=== PATIENT | male | born 1945 | race African-American/Black ===

== ENCOUNTER 2017-12-19 13:03 | Inpatient (IN) | payer MEDICARE, OTHER ==
[~2017-12-19] VITALS: Ht 180.3 cm; Wt 87.5 kg
[~2017-12-19 13:03] MED LIST: ASPI325T PO; CLON-352 PO; HYDR-2768 PO; LISI-363 PO; LOSA50TA PO; METO50TA PO; NITR.4 SL; OMEP20TA PO; SPIR25 PO
[2017-12-19] MEDS ORDERED: ACETAMINOPHEN 325 MG TAB PO ONE (13:15)
[2017-12-19] MEDS ORDERED: VANCOMYCIN INJ 1,000 MG in SODIUM CHLOR 0.9% 250 ML INJ 250 ML IV STA (13:15)
[2017-12-19] MEDS ORDERED: SODIUM CHLOR 0.9% 1000 ML INJ 1,000 ML IV ONE ×2 (13:15)
[2017-12-19] MEDS ORDERED: PIPERACIL-TAZO 4.5 GM PREMIX 100 ML IV STA (13:15)
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
[2017-12-19 13:32] VITALS: BP 188/100; PULSE 121; RESP 20; TEMP 98.7
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
[2017-12-19 14:02] VITALS: PULSE 113; RESP 20; TEMP 98.7; O2SAT 100
[2017-12-19 14:06] VITALS: BP 134/71; PULSE 127; RESP 20; O2SAT 100
[2017-12-19 14:54] LABS: AUTOMATED NEUTROPHIL # 22.9 TH/MM3 (1.8-7.7); BASOPHIL % 0.1 % (0.0-2.0); HEMATOCRIT 32.2 % (39.0-51.0); HEMOGLOBIN 10.4 GM/DL (13.0-17.0); LYMPH % 3.6 % (9.0-44.0); LYMPHOCYTE # 0.9 TH/MM3 (1.0-4.8); MEAN CELL VOLUME 93.7 FL (80.0-100.0); MEAN CORPUSCULAR HEMOGLOBIN 30.3 PG (27.0-34.0); MEAN CORPUSCULAR HGB CONC 32.4 % (32.0-36.0); MEAN PLATELET VOLUME 10.5 FL (7.0-11.0); MONO % 3.3 % (0.0-8.0); MONOCYTE # 0.8 TH/MM3 (0-0.9); PLATELET COUNT 279 TH/MM3 (150-450); RED BLOOD COUNT 3.43 MIL/MM3 (4.50-5.90); RED CELL DISTRIBUTION WIDTH 13.4 % (11.6-17.2); WHITE BLOOD COUNT 24.6 TH/MM3 (4.0-11.0)
[2017-12-19 15:15] LABS: INTERNATIONAL NORMALIZED RATIO 1.2 RATIO
[2017-12-19 15:20] LABS: AMORPHOUS SEDIMENT, URINE MANY; BACTERIA, URINE OCC /hpf; BILIRUBIN, URINE NEG (NEG); BLOOD, URINE SMALL (NEG); GLUCOSE,URINE NEG (NEG); KETONE, URINE NEG (NEG); MUCUS URINE FEW /lpf (OCC); NITRITE,URINE NEG (NEG); SQUAMOUS EPITHELIAL CELL URINE 35 /hpf (0-5); URINE COLOR YELLOW (YELLW/STRAW); URINE LEUKOCYTE ESTERASE TRACE (NEG)
[2017-12-19 15:26] LABS: ALKALINE PHOSPHATASE 117 U/L (45-117); ALT (GPT) 62 U/L (12-78); TOTAL BILIRUBIN ADULT 0.9 MG/DL (0.2-1.0); TOTAL PROTEIN 6.3 GM/DL (6.4-8.2)
[2017-12-19 15:28] LABS: ALBUMIN 1.8 GM/DL (3.4-5.0); AST (GOT) 72 U/L (15-37); BICARBONATE 19.5 MEQ/L (21.0-32.0); BLOOD UREA NITROGEN 81 MG/DL (7-18); CALCIUM 8.5 MG/DL (8.5-10.1); CHLORIDE 106 MEQ/L (98-107); CREATININE 2.08 MG/DL (0.60-1.30); GLOMERULAR FILTRATION RATE 38 ML/MIN (>89); GLUCOSE,RANDOM 130 MG/DL (74-106); SODIUM (NA) 141 MEQ/L (136-145)
[2017-12-19] MEDS ORDERED: LISI-515 PO (16:52)
[2017-12-19] MEDS ORDERED: METO25TA3 PO (16:52)
[2017-12-19] MEDS ORDERED: LOSA50TA PO (16:52)
[2017-12-19] MEDS ORDERED: HYDR25TA5 PO (16:52)
[2017-12-19] MEDS ORDERED: CLON0.1T PO (16:52)
[2017-12-19] MEDS ORDERED: ASPI-183 PO (16:52)
[2017-12-19 17:45] VITALS: BP 117/56; PULSE 86; RESP 16; TEMP 98.1; O2SAT 98
[2017-12-19] MEDS: SODIUM CHLOR 0.45% 1000 ML INJ 1,000 ML IV SCH (18:06)
[2017-12-19] MEDS ORDERED: ACETAMINOPHEN 325 MG TAB PO PRN ×2 (18:15)
[2017-12-19] MEDS ORDERED: Vancomycin Consult Pharmacy 1 EA OTHER SCH (18:15)
[2017-12-19] MEDS ORDERED: NALOXONE HCL 0.4 MG/ML AMP IV PUSH PRN (18:15)
[2017-12-19] MEDS ORDERED: SODIUM CHLORIDE 0.9% FLUSH 10 ML FLUSH IV FLUSH PRN (18:15)
[2017-12-19] MEDS ORDERED: VANCOMYCIN 1,000 MG/NS 250 ML IV ONE ×2 (19:15)
--- NOTE | 2017-12-19 19:58 | HHI.HP ---
[facility] Service [facility] Primary Care Physician Luis Armando Goldman MD Admission Diagnosis Sepsis/Decubitus Ulcer in Paraplegic Diagnoses: Travel History International Travel<30 Days: No Contact w/Intl Traveler <30 Da: No Traveled to Known Affected Are: No History of Present Illness 72-year-old paraplegic with a past medical history significant for hypertension and hyperlipidemia presents to the emergency department for the evaluation of a wound on his buttock. The patient reports that when he transfers from the bed to his chair he will occasionally fall on the floor and have to scoot across the floor on his buttock. He reports that he initially had a small wound in January 2017 that by July 2017 had progressed to a stage III decubitus ulcer. In October 2017 the patient was evaluated at the [facility] in [place] where he was told that his ulcer was healing and that it was now a stage II. The patient reports that he fell out of bed 2 times in the last week and has irritated the wound. He states there is foul-smelling drainage coming from the area. He denies any fevers/chills. No chest pain or shortness of breath. No abdominal pain. No nausea/vomiting/diarrhea. No lateralizing signs/symptoms. Review of Systems Except as stated in HPI: all other systems reviewed are Neg Past Family Social History Past Medical History Paraplegia Hypertension Hyperlipidemia Past Surgical History Left hip surgery Reported Medications Reported Meds & Active Scripts Active Reported Metoprolol Tartrate 25 Mg Tab 25 Mg PO BID Losartan (Losartan Potassium) 50 Mg Tab 50 Mg PO DAILY Lisinopril 20 Mg Tab 20 Mg PO DAILY Hydrochlorothiazide 25 Mg Tab 25 Mg PO DAILY Clonidine (Clonidine HCl) 0.1 Mg Tab 0.1 Mg PO BID Aspirin 325 Mg Tab 325 Mg PO DAILY Allergies: Coded Allergies: No Known Allergies (Unverified Allergy, Unknown, 12/19/17) Family History Father with CAD Social History Negative for alcohol, tobacco and illicit drugs Physical Exam Vital Signs Vital Signs Date Time Temp Pulse Resp B/P (MAP) Pulse Ox O2 Delivery O2 Flow Rate FiO2 12/19/17 19:20 12/19/17 17:45 98.1 86 16 117/56 (76) 98 Nasal Cannula 2.00 12/19/17 14:37 120 12/19/17 14:06 127 20 134/71 (92) 100 Nasal Cannula 2.00 12/19/17 14:02 98.7 113 20 100 Nasal Cannula 2.00 12/19/17 13:53 100 Nasal Cannula 2.00 12/19/17 13:32 98.7 121 20 188/100 (129) Physical Exam GENERAL: -[place] male sitting up in bed SKIN: 6 cm stage III decubitus ulcer on the right buttock and stage IV 5 x 9 centimeter decubitus ulcer to the left buttock with foul-smelling purulent drainage. HEAD: Atraumatic. Normocephalic. No temporal or scalp tenderness. EYES: Pupils equal round and reactive. Extraocular motions intact. No scleral icterus. No injection or drainage. ENT: Nose without bleeding, purulent drainage or septal hematoma. Throat without erythema, tonsillar hypertrophy or exudate. Uvula midline. Airway patent. NECK: Trachea midline. No JVD or lymphadenopathy. Supple, nontender, no meningeal signs. CARDIOVASCULAR: Regular rate and rhythm without murmurs, gallops, or rubs. RESPIRATORY: Clear to auscultation. Breath sounds equal bilaterally. No wheezes , rales, or rhonchi. GASTROINTESTINAL: Abdomen soft, non-tender, nondistended. No hepato-splenomegaly , or palpable masses. No guarding. MUSCULOSKELETAL: Extremities without clubbing, cyanosis, or edema. No joint tenderness, effusion, or edema noted. NEUROLOGICAL: Awake and alert. Cranial nerves II through XII intact. Normal speech. Paraplegia. Laboratory Laboratory Tests Test 12/19/17 14:15 12/19/17 14:25 Urine Color YELLOW Urine Turbidity CLOUDY Urine pH 5.0 Urine Specific [place] 1.015 Urine Protein 30 Urine Glucose (UA) NEG Urine Ketones NEG Urine Occult Blood SMALL Urine Nitrite NEG Urine Bilirubin NEG Urine Urobilinogen 2.0 Urine Leukocyte Esterase TRACE Urine RBC 4 Urine WBC 6 Urine Squamous Epithelial Cells 35 Urine Amorphous Sediment MANY Urine Bacteria OCC Urine Mucus FEW Microscopic Urinalysis Comment CATH-CULTURE IND White Blood Count 24.6 Red Blood Count 3.43 Hemoglobin 10.4 Hematocrit 32.2 Mean Corpuscular Volume 93.7 Mean Corpuscular Hemoglobin 30.3 Mean Corpuscular Hemoglobin Concent 32.4 Red Cell Distribution Width 13.4 Platelet Count 279 Mean Platelet Volume 10.5 Neutrophils (%) (Auto) 93.0 Lymphocytes (%) (Auto) 3.6 Monocytes (%) (Auto) 3.3 Eosinophils (%) (Auto) 0.0 Basophils (%) (Auto) 0.1 Neutrophils # (Auto) 22.9 Lymphocytes # (Auto) 0.9 Monocytes # (Auto) 0.8 Eosinophils # (Auto) 0.0 Basophils # (Auto) 0.0 CBC Comment DIFF FINAL Differential Comment Prothrombin Time 12.0 Prothromb Time International Ratio 1.2 Activated Partial Thromboplast Time 21.5 Blood Urea Nitrogen 81 Creatinine 2.08 Random Glucose 130 Total Protein 6.3 Albumin 1.8 Calcium Level 8.5 Alkaline Phosphatase 117 Aspartate Amino Transf (AST/SGOT) 72 Alanine Aminotransferase (ALT/SGPT) 62 Total Bilirubin 0.9 Sodium Level 141 Potassium Level 4.1 Chloride Level 106 Carbon Dioxide Level 19.5 Anion Gap 16 Estimat Glomerular Filtration Rate 38 Lactic Acid Level 1.4 Date/Time Source Procedure Growth Status 12/19/17 14:23 Blood Peripheral Aerobic Blood Culture Pending Received 12/19/17 14:23 Blood Peripheral Anaerobic Blood Culture Pending Received 12/19/17 14:15 Urine Catheterized Urine Urine Culture Pending Received 12/19/17 14:15 Wound Buttock Gram Stain Pending Received 12/19/17 14:15 Wound Buttock Wound Culture Pending Received Result Diagram: 12/19/17 1425 12/19/17 142 Caprini VTE Risk Assessment Caprini VTE Risk Assessment: Mod/High Risk (score >= 2) Caprini Risk Assessment Model Point Value = 1 Point Value = 2 Point Value = 3 Point Value = 5 Age 41-60 Minor surgery BMI > 25 kg/m2 Swollen legs Varicose veins or History of unexplained or recurrent spontaneous Oral contraceptives or hormone replacement Sepsis (< 1 month) Serious lung disease, including pneumonia (< 1 month) Abnormal pulmonary function Acute myocardial infarction Congestive heart failure (< 1 month) History of inflammatory bowel disease Medical patient at bed rest Age 61-74 Arthroscopic surgery Major open surgery (> 45 min) Laparoscopic surgery (> 45 min) Malignancy Confined to bed (> 72 hours) Immobilizing plaster cast Central venous access Age >= 75 History of VTE Family history of VTE Factor V Leiden Prothrombin [id number] Lupus anticoagulant Anticardiolipin antibodies Elevated serum homocysteine Heparin-induced thrombocytopenia Other congenital or acquired thrombophilia Stroke (< 1 month) Elective arthroplasty Hip, pelvis, or leg fracture Acute spinal cord injury (< 1 month) Prophylaxis Regimen Total Risk Factor Score Risk Level Prophylaxis Regimen 0-1 Low Early ambulation 2 Moderate Order ONE of the following: *Sequential Compression Device (SCD) *Heparin 5000 units SQ BID 3-4 Higher Order ONE of the following medications: *Heparin 5000 units SQ TID *Enoxaparin/Lovenox 40 mg SQ daily (WT < 150 kg, CrCl > 30 mL/min) *Enoxaparin/Lovenox 30 mg SQ daily (WT < 150 kg, CrCl > 10-29 mL/min) *Enoxaparin/Lovenox 30 mg SQ BID (WT < 150 kg, CrCl > 30 mL/min) AND/OR *Sequential Compression Device (SCD) 5 or more Highest Order ONE of the following medications: *Heparin 5000 units SQ TID (Preferred with Epidurals) *Enoxaparin/Lovenox 40 mg SQ daily (WT < 150 kg, CrCl > 30 mL/min) *Enoxaparin/Lovenox 30 mg SQ daily (WT < 150 kg, CrCl > 10-29 mL/min) *Enoxaparin/Lovenox 30 mg SQ BID (WT < 150 kg, CrCl > 30 mL/min) AND *Sequential Compression Device (SCD) Assessment and Plan Assessment and Plan Assessment/plan: 1. Infected decubitus ulcer/sepsis Patient with leukocytosis, tachycardia Wound, blood cultures pending Vancomycin/Zosyn Wound care consulted, appreciate assistance Infectious disease consulted, appreciate assistance Plastic surgery consulted, appreciate assistance 2. Urinary tract infection Urine culture pending Antibiotics as above 3. Acute kidney injury BUN/81 creatinine 2.08 May be chronic component, no recent values for comparison IV fluid hydration Monitor renal function 4. Hypertension/hyperlipidemia Continue home medications FEN Heart healthy diet Electrolytes: Monitor and replete as needed NS at 100 cc/hour Heparin Physician Certification 2 Midnight Certification Type: Admission for Inpatient Services Order for Inpatient Services The services are ordered in accordance with Medicare regulations or non- Medicare payer requirements, as applicable. In the case of services not specified as inpatient-only, they are appropriately provided as inpatient services in accordance with the 2-midnight benchmark. Estimated LOS (days): 2 2 days is the estimated time the patient will need to remain in the hospital, assuming treatment plan goals are met and no additional complications. Post-Hospital Plan: Not yet determined Bella Edmonds MD Dec 19, 2017 19:58
[2017-12-19 20:00] VITALS: BP 128/62; PULSE 99; RESP 18; TEMP 98.5; O2SAT 97
[2017-12-19] MEDS: DOCUSATE SODIUM 50 MG/SENNA 8.6 MG TAB PO SCH (21:00)
[2017-12-19] MEDS: SODIUM CHLOR 0.9% 1000 ML INJ 1,000 ML IV SCH (23:01)
[2017-12-19] MEDS: cloNIDine HCL 0.1 MG TAB PO SCH (23:02)
[2017-12-19] MEDS: METOPROLOL TARTRATE 25 MG TAB PO SCH (23:02)
[2017-12-19] MEDS: HEPARIN SODIUM - SQ 10,000 UNITS/ML VIAL SQ SCH (23:04)
[2017-12-19] MEDS: SODIUM CHLORIDE 0.9% FLUSH 10 ML FLUSH IV FLUSH SCH (23:13)
[2017-12-19] MEDS: PIPERACIL-TAZO 2.25 GM PREMIX 50 ML IV SCH (23:13)
[2017-12-19 23:33] VITALS: PULSE 109
[2017-12-20] VITALS (7 sets, daily range): BP systolic 119–162; BP diastolic 59–77; PULSE 16–101; RESP 10–18; TEMP 98.1–100.3; O2SAT 91–98
[2017-12-20] MEDS: SODIUM CHLOR 0.45% 1000 ML INJ 1,000 ML IV SCH ×2 (03:52→20:47)
[2017-12-20] MEDS: PIPERACIL-TAZO 2.25 GM PREMIX 50 ML IV SCH ×4 (04:46→22:05)
[2017-12-20] MEDS: HEPARIN SODIUM - SQ 10,000 UNITS/ML VIAL SQ SCH ×4 (04:47→22:05)
[2017-12-20] MEDS: SODIUM CHLOR 0.9% 1000 ML INJ 1,000 ML IV SCH ×3 (04:47→22:10)
[2017-12-20 08:02] LABS: AUTOMATED NEUTROPHIL # 21.8 TH/MM3 (1.8-7.7); BASOPHIL % 0.2 % (0.0-2.0); EOSINOPHIL % 0.1 % (0.0-4.0); HEMATOCRIT 28.1 % (39.0-51.0); HEMOGLOBIN 9.2 GM/DL (13.0-17.0); LYMPH % 2.8 % (9.0-44.0); LYMPHOCYTE # 0.6 TH/MM3 (1.0-4.8); MEAN CELL VOLUME 93.8 FL (80.0-100.0); MEAN CORPUSCULAR HEMOGLOBIN 30.7 PG (27.0-34.0); MEAN CORPUSCULAR HGB CONC 32.8 % (32.0-36.0); MEAN PLATELET VOLUME 10.6 FL (7.0-11.0); MONO % 3.2 % (0.0-8.0); MONOCYTE # 0.7 TH/MM3 (0-0.9); NEUT % 93.7 % (16.0-70.0); PLATELET COUNT 245 TH/MM3 (150-450); RED BLOOD COUNT 2.99 MIL/MM3 (4.50-5.90); RED CELL DISTRIBUTION WIDTH 13.5 % (11.6-17.2); WHITE BLOOD COUNT 23.2 TH/MM3 (4.0-11.0)
[2017-12-20 08:42] LABS: ALBUMIN 1.5 GM/DL (3.4-5.0); ALKALINE PHOSPHATASE 136 U/L (45-117); ALT (GPT) 72 U/L (12-78); AST (GOT) 87 U/L (15-37); BICARBONATE 22.6 MEQ/L (21.0-32.0); BLOOD UREA NITROGEN 70 MG/DL (7-18); CALCIUM 7.7 MG/DL (8.5-10.1); CHLORIDE 109 MEQ/L (98-107); CREATININE 1.91 MG/DL (0.60-1.30); GLOMERULAR FILTRATION RATE 42 ML/MIN (>89); GLUCOSE,RANDOM 143 MG/DL (74-106); SODIUM (NA) 143 MEQ/L (136-145); TOTAL BILIRUBIN ADULT 0.6 MG/DL (0.2-1.0); TOTAL PROTEIN 5.5 GM/DL (6.4-8.2)
[2017-12-20] MEDS: cloNIDine HCL 0.1 MG TAB PO SCH ×2 (08:49→22:06)
[2017-12-20] MEDS: METOPROLOL TARTRATE 25 MG TAB PO SCH ×2 (08:49→22:06)
[2017-12-20] MEDS: SODIUM CHLORIDE 0.9% FLUSH 10 ML FLUSH IV FLUSH SCH ×2 (08:50→21:00)
[2017-12-20] MEDS: DOCUSATE SODIUM 50 MG/SENNA 8.6 MG TAB PO SCH ×2 (08:52→21:00)
--- NOTE | 2017-12-20 09:15 | EKG ---
Date Performed: 12/19/2017 Time Performed: 15:31:50 PTAGE: 72 years EKG: SINUS TACHYCARDIA WITH OCCASIONAL VENTRICULAR PREMATURE COMPLEXES NONSPECIFIC T-WAVE ABNORM ALITY ABNORMAL RHYTHM ECG Since the PREVIOUS TRACING , no significant change noted PREVIOUS TRACING DOCTOR: Natanael Anglin Interpretating Date/Time 12/20/2017 09:13:24
[2017-12-20 10:07] LABS: BANDS 20 % (0-6); MONOCYTES 3 % (0-8); NEUTROPHIL # MANUAL DIFF 22.5 TH/MM3 (1.8-7.7); POLYS (SEG NEUTROPHILS) 77 % (16-70)
[2017-12-20 10:08] LABS: TOXIC GRANULATION 2+ (NORMAL)
--- NOTE | 2017-12-20 10:54 | HHI.PR ---
Subjective Remarks Patient says he is feeling all right. Denies any chest pain shortness of breath denies any nausea or vomiting. Objective Vital Signs Date Time Temp Pulse Resp B/P (MAP) Pulse Ox O2 Delivery O2 Flow Rate FiO2 12/20/17 08:00 98.9 81 18 127/61 (83) 98 12/20/17 04:00 100.3 90 18 119/60 (79) 98 12/20/17 00:00 99.3 94 18 123/65 (84) 97 12/19/17 23:33 109 12/19/17 20:00 98.5 99 18 128/62 (84) 97 12/19/17 19:20 12/19/17 17:45 98.1 86 16 117/56 (76) 98 Nasal Cannula 2.00 12/19/17 14:37 120 12/19/17 14:06 127 20 134/71 (92) 100 Nasal Cannula 2.00 12/19/17 14:02 98.7 113 20 100 Nasal Cannula 2.00 12/19/17 13:53 100 Nasal Cannula 2.00 12/19/17 13:32 98.7 121 20 188/100 (129) I/O 12/19/17 12/19/17 12/19/17 12/20/17 12/20/17 12/20/17 06:59 14:59 22:59 06:59 14:59 22:59 Intake Total 2350 ml 250 ml Output Total 200 ml Balance 2350 ml 50 ml Intake IV Total 2350 ml 250 ml Output Urine Total 200 ml # Voids 2 Result Diagram: 12/20/17 0704 12/20/17 0704 Objective Remarks GENERAL: Patient sitting up in bed. Appears comfortable. SKIN: Warm and dry. HEAD: Normocephalic. EYES: No scleral icterus. No injection or drainage. NECK: Supple, trachea midline. No JVD or lymphadenopathy. CARDIOVASCULAR: Regular rate and rhythm without murmurs, gallops, or rubs. RESPIRATORY: Breath sounds equal bilaterally. No accessory muscle use. GASTROINTESTINAL: Abdomen soft, non-tender, nondistended. MUSCULOSKELETAL: No cyanosis, or edema. BACK: Nontender without obvious deformity. No CVA tenderness. A/P Assessment and Plan // Infected decubitus ulcer/sepsis Patient with leukocytosis, tachycardia Wound, blood cultures pending Vancomycin/Zosyn Wound care consulted, appreciate assistance Infectious disease consulted, appreciate assistance Plastic surgery consulted, appreciate assistance = Antibiotics. Follow-up plastic surgery consultation. Appreciate assistance. //Urinary tract infection Urine culture pending Antibiotics as above = Continue antibiotics and follow cultures. //Acute kidney injury BUN/81 creatinine 2.08 May be chronic component, no recent values for comparison IV fluid hydration Monitor renal function = Continue IV fluids. BUN improving. //Hypertension/hyperlipidemia Continue home medications FEN Heart healthy diet Electrolytes: Monitor and replete as needed NS at 75 cc/hour Heparin Discharge Planning Patient is paraplegic. pending PT/OT Wayne Peoples MD Dec 20, 2017 10:53
--- NOTE | 2017-12-20 15:02 | MB ---
cc: Lalitha Lehman MD DATE: 12/20/2017 REQUESTING PHYSICIAN: Amari Harmon MD REASON FOR CONSULTATION: Infected decubitus ulcer. HISTORY OF PRESENT ILLNESS: The patient is a 72-year-old paraplegic male with a past medical history of hypertension and hyperlipidemia, who came into the emergency room on 12/19/2017 for a wound of his buttock. The patient apparently had been evaluated in [place] at the [facility], but now comes in with sepsis. Consultation is requested regarding evaluation and treatment of this wound. REVIEW OF SYSTEMS: Otherwise negative in detail. PAST MEDICAL HISTORY: Significant for paraplegia, hypertension, hyperlipidemia. PAST SURGICAL HISTORY: Includes left hip surgery. MEDICATIONS: Listed on the chart. ALLERGIES: HE HAS NO KNOWN FOOD OR DRUG ALLERGIES. FAMILY HISTORY: Significant for coronary artery disease. SOCIAL HISTORY: He denies use of alcohol, tobacco or illicit drugs. PHYSICAL EXAMINATION: GENERAL: The patient is lying comfortably in bed. VITAL SIGNS: His temperature is 98.9, blood pressure is 127/81, pulse is 80, respirations 18. His pulse oximetry is 90 on room air. HEENT: His extraocular muscles are intact. His pupils are equal, round and reactive to light. His mouth is clear. NECK: Supple without masses. LUNGS: Clear. HEART: Has a regular rate and rhythm. EXTREMITIES: Reveals a stage III decubitus ulcer over the right ischial tuberosity. There is no evidence of cellulitis. This area measures approximately 4 x 2 cm in greatest dimension. On the left side, the patient has a 5 x 9 cm decubitus ulcer over the ischial tuberosity. There is a significant amount of muscle. There was a foul odor. It is draining. There is no cellulitis surrounding the area. REVIEW OF LABORATORY DATA: On admission, the patient's H and H was 10.4 and 32.2 with a white count of 24.6, which is 23.2 today with a positive shift. His chemistries show BUN of 70, creatinine 1.91. The glomerular filtration rate of 42. His albumin is low at 1.5 with a total protein of 5.5. His urine shows that the culture is indicated as it is cloudy, high protein, small blood, trace urine leukocyte esterase. He has got white cells and red cells, occasional bacteria. IMPRESSION: The patient has a left ischial decubitus ulcer, which has a significant amount of necrotic material. PLAN: The patient will be taken to the operating room for debridement of the wound and application of a wound VAC. The patient understands and accepts the risks and complications of the surgery. MD ASIA Nunn/TEENA , 02:40 PM , 03:01 PM
--- NOTE | 2017-12-20 15:58 | PD.WCN.NOT ---
Wound Consult Description: Consult for WOUND MANAGEMENT of Sacral per Dr Harmon Communicated with: Dr Fallon Hernandez, RN Recommendation: Cleanse left lateral lower extremity with wound cleanser and gauze Q5D and PRN for saturation or dislodgement. Apply Maxorb II over wound beds and cover with gauze. Secure primary dressing with rolled gauze and ROSELYN wrap. Date dressing. Right ischial tuberosity DAILY: Cleanse wound with adherent necrotic tissue with NS and gauze. Apply nickel thick Santyl to NS moistened gauze and place in/on wound bed. Apply Cavilon skin barrier film to periwound and allow to dry. Secure with bordered gauze and date. Left ischial tuberosity BID and PRN for saturation or dislodgment until O.R. debridement 12/21/[address] Lehman: Betadine moistened rolled gauze placed into wound. Cover with dry cover and date/time. Additional Information: Patient seen with Dr Lehman today on for bilateral ischial wounds. Patient was able to reposition himself with minimal assistance to his stomach for assessment. During repositioning, let it be noted that patient has 2 left lower lateral leg wounds, the largest measuring 2.8cm x 0.9cm x 0.2cm of moist red non granulating tissue without odor and without drainage and periwound of hyperkeratotic tissue. The smaller wound is noted superiorly to previous wound measuring 2cm x 1cm x 0.2cm with moist red non granulating tissue without odor and without drainage and periwound of hyperkeratotic tissue. Wound was cleansed with wound cleanser and pat dry with gauze. Maxorb II was applied to open wounds and covered with gauze secured with ROSELYN wrap that may remain in place for 5 days. Right ischium dressing of bordered gauze was removed to reveal an unstageable pressure wound measuring 6.8cm x 6.5cm x ~70% adherent dry yellow slough and ~30% red and white tissue. There is no odor and drainage noted. Wound margins are jagged and irregular with unremarkable periwound. Wound was cleansed with wound cleanser. Dr Lehman entered room when field underwriter was applying a dry dressing over wound and asked to visualize before securing with bordered gauze. Left ischium dressing of bordered gauze and foul soiled gauze pads were removed to reveal a Stage IV pressure injury with visualized muscle and palpable bone measuring ~16cm x 8cm x 4cm with ~80% loosely adherent brown slough ~10% fascia and ~10% muscle tissue. Dark yellow hamilton thick exudate/active drainage was noted with repositioning for clear visualization of wound. Undermining was noted circumferentially with deepest being 7cm @9 o'clock and 5cm from 10-1 o'clock. Wound extends down into the left groin. Wound was cleansed with wound cleanser and packed with betadine moistened rolled gauze as verbally ordered by Dr Lehman. Patient spoke with DR regarding OR for debridement in the morning. Patient was cleansed, repositioned, and all bed linens changed by field underwriter prior to exiting patient room. RN was notified that patient was requesting a condom catheter to protect all his new clean sheets. Clarisse Villa [facility] Dec 20, 2017 15:58
--- NOTE | 2017-12-20 19:24 | PD.ID.CON ---
History of Present Illness Service ID Consult Requested By Reason for Consult Eval and Mment of INfected Stage III decub ulcer. Primary Care Physician Luis Armando Goldman MD Diagnoses: History of Present Illness 72-year-old paraplegic with a past medical history significant for hypertension and hyperlipidemia presents to the emergency department for the evaluation of a wound on his buttock. The patient reports that when he transfers from the bed to his chair he will occasionally fall on the floor and have to scoot across the floor on his buttock. He reports that he initially had a small wound in January 2017 that by July 2017 had progressed to a stage III decubitus ulcer. In October 2017 the patient was evaluated at the [facility] in [place] where he was told that his ulcer was healing and that it was now a stage II. The patient reports that he fell out of bed 2 times in the last week and has irritated the wound. He states there is foul-smelling drainage coming from the area. He denies any fevers/chills. No chest pain or shortness of breath. No abdominal pain. No nausea/vomiting/diarrhea. No lateralizing signs/symptoms. ID consulted for eval and Mment of Infected stage III decub ulcer possible underlying myositis with necrotic muscle. Review of Systems ROS Limitations: Poor Historian Past Family Social History Allergies: Coded Allergies: No Known Allergies (Unverified Allergy, Unknown, 12/19/17) Past Medical History Past Medical History Paraplegia Hypertension Hyperlipidemia Past Surgical History Past Surgical History Left hip surgery Reported Medications Reported Meds & Active Scripts Active Reported Metoprolol Tartrate 25 Mg Tab 25 Mg PO BID Losartan (Losartan Potassium) 50 Mg Tab 50 Mg PO DAILY Lisinopril 20 Mg Tab 20 Mg PO DAILY Hydrochlorothiazide 25 Mg Tab 25 Mg PO DAILY Clonidine (Clonidine HCl) 0.1 Mg Tab 0.1 Mg PO BID Aspirin 325 Mg Tab 325 Mg PO DAILY Active Ordered Medications Current Medications Medications (Trade) Dose Ordered Sig/Sharlene Route Start Time Stop Time Status Last Admin Piperacillin Sod/ Tazobactam Sod 50 ml @ 100 mls/hr Q6H IV 12/19/17 21:00 12/20/17 22:05 Pharmacy Profile Note 0 ml @ 0 mls/hr UNSCH OTHER 12/19/17 18:15 Sodium Chloride 1,000 ml @ 75 mls/hr [id number] IV 12/19/17 18:06 (NS Flush) 2 ml UNSCH PRN IV FLUSH 12/19/17 18:15 (NS Flush) 2 ml BID IV FLUSH 12/19/17 21:00 12/19/17 23:13 (Tylenol) 650 mg Q4H PRN PO 12/19/17 18:15 (Heparin Inj) 5,000 units Q8H SQ 12/19/17 21:00 12/20/17 11:54 (Tylenol) 650 mg Q6H PRN PO 12/19/17 18:15 (Roxicodone) 10 mg Q4H PRN PO 12/19/17 18:15 (Roxicodone) 5 mg Q4H PRN PO 12/19/17 18:15 (Narcan Inj) 0.4 mg UNSCH PRN IV PUSH 12/19/17 18:15 (Sheri-Colace) 1 tab BID PO 12/19/17 21:00 (Catapres) 0.1 mg BID PO 12/19/17 21:00 12/20/17 22:06 (Lopressor) 25 mg BID PO 12/19/17 21:00 12/20/17 22:06 Sodium Chloride 1,000 ml @ 100 mls/hr Q10H IV 12/19/17 20:00 12/20/17 22:10 Vancomycin HCl 1000 mg/Sodium Chloride 250 ml @ 250 mls/hr Q36H IV 12/21/17 11:00 ([facility] Ordered Lab Info) SPECIFIC LAB TO BE ... ONCE ONCE .XX 12/23/17 10:45 12/23/17 10:46 Family History reviewed and [place] Social History reviewed. Physical Exam Vital Signs Vital Signs Date Time Temp Pulse Resp B/P (MAP) Pulse Ox O2 Delivery O2 Flow Rate FiO2 12/20/17 16:00 98.1 85 18 153/65 (94) 91 12/20/17 12:00 98.3 84 18 121/59 (79) 96 12/20/17 08:00 98.9 81 18 127/61 (83) 98 12/20/17 08:00 78 12/20/17 04:00 100.3 90 18 119/60 (79) 98 12/20/17 00:00 99.3 94 18 123/65 (84) 97 12/19/17 23:33 109 12/19/17 20:00 98.5 99 18 128/62 (84) 97 Physical Exam GENERAL: This is a well-nourished, well-developed patient, in no apparent distress. SKIN: No rashes, ecchymoses or lesions. Cool and dry. HEAD: Atraumatic. Normocephalic. No temporal or scalp tenderness. EYES: Pupils equal round and reactive. Extraocular motions intact. No scleral icterus. No injection or drainage. ENT: Nose without bleeding, purulent drainage or septal hematoma. Throat without erythema, tonsillar hypertrophy or exudate. Uvula midline. Airway patent. NECK: Trachea midline. No JVD or lymphadenopathy. Supple, nontender, no meningeal signs. CARDIOVASCULAR: Regular rate and rhythm without murmurs, gallops, or rubs. RESPIRATORY: Clear to auscultation. Breath sounds equal bilaterally. No wheezes , rales, or rhonchi. GASTROINTESTINAL: Abdomen soft, non-tender, nondistended. No hepato-splenomegaly , or palpable masses. No guarding. MUSCULOSKELETAL: Extremities without clubbing, cyanosis, or edema. No joint tenderness, effusion, or edema noted. No calf tenderness. Negative Homans sign bilaterally. NEUROLOGICAL: Awake and alert. Right buttock area: decub ulcer noted. Warmth noted. Patient is dark skinned no erythema can be appreciated. IV line sites with no e.o infection. Laboratory Laboratory Tests Test 12/20/17 07:04 White Blood Count 23.2 Red Blood Count 2.99 Hemoglobin 9.2 Hematocrit 28.1 Mean Corpuscular Volume 93.8 Mean Corpuscular Hemoglobin 30.7 Mean Corpuscular Hemoglobin Concent 32.8 Red Cell Distribution Width 13.5 Platelet Count 245 Mean Platelet Volume 10.6 Neutrophils (%) (Auto) 93.7 Lymphocytes (%) (Auto) 2.8 Monocytes (%) (Auto) 3.2 Eosinophils (%) (Auto) 0.1 Basophils (%) (Auto) 0.2 Neutrophils # (Auto) 21.8 Lymphocytes # (Auto) 0.6 Monocytes # (Auto) 0.7 Eosinophils # (Auto) 0.0 Basophils # (Auto) 0.0 CBC Comment AUTO DIFF Differential Total Cells Counted 100 Neutrophils % (Manual) 77 Band Neutrophils % 20 Monocytes % 3 Neutrophils # (Manual) 22.5 Differential Comment FINAL DIFF MANUAL Toxic Granulation 2+ Platelet Estimate NORMAL Platelet Morphology Comment NORMAL Erythrocyte Sedimentation Rate 76 Blood Urea Nitrogen 70 Creatinine 1.91 Random Glucose 143 Total Protein 5.5 Albumin 1.5 Calcium Level 7.7 Alkaline Phosphatase 136 Aspartate Amino Transf (AST/SGOT) 87 Alanine Aminotransferase (ALT/SGPT) 72 Total Bilirubin 0.6 Sodium Level 143 Potassium Level 3.8 Chloride Level 109 Carbon Dioxide Level 22.6 Anion Gap 11 Estimat Glomerular Filtration Rate 42 B-Type Natriuretic Peptide 36 Date/Time Source Procedure Growth Status 12/19/17 14:23 Blood Peripheral Aerobic Blood Culture - Preliminary NO GROWTH IN 1 DAY Resulted 12/19/17 14:23 Blood Peripheral Anaerobic Blood Culture - Preliminary NO GROWTH IN 1 DAY Resulted 12/19/17 14:15 Urine Catheterized Urine Urine Culture - Final 50-100,000 CFU/ML MIXED ESTEFANÍA... Complete 12/19/17 14:15 Wound Buttock Gram Stain - Final Resulted 12/19/17 14:15 Wound Buttock Wound Culture - Preliminary Resulted Result Diagram: 12/20/17 0704 12/20/17 0704 Imaging Last Impressions Chest X-Ray 12/19/17 1315 Signed Impressions: CONCLUSION: No acute cardiopulmonary process. 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 Possible sepsis on admission Acute renal failure: prerenal, sepsis, ? baseline Recs Continue Zosyn IV Continue Vanco IV (target 10-15) Follow cultures Follow clinically. Please send cultures intraoperatively. Orders entered. Lisa Oliva MD Dec 20, 2017 19:24
[2017-12-21] VITALS (9 sets, daily range): BP systolic 121–139; BP diastolic 61–67; PULSE 69–94; RESP 16–18; TEMP 97.4–98.9; O2SAT 95–100
[2017-12-21] MEDS ORDERED: LACTATED RINGER'S 1000 ML IV PRN (04:15)
[2017-12-21] MEDS ORDERED: CHLORHEXIDINE GLUCONATE 2 % 1 PACK (2 CLOTHS) TOPICAL PRN (04:15)
[2017-12-21] MEDS ORDERED: POVIDONE IODINE 5% (ANTISEPSIS KIT) 4 APPLICATIONS EACH NARE PRN (04:15)
[2017-12-21] MEDS: HEPARIN SODIUM - SQ 10,000 UNITS/ML VIAL SQ SCH ×3 (04:16→21:03)
[2017-12-21] MEDS: PIPERACIL-TAZO 2.25 GM PREMIX 50 ML IV SCH ×4 (04:16→21:02)
[2017-12-21] MEDS: DOCUSATE SODIUM 50 MG/SENNA 8.6 MG TAB PO SCH ×2 (08:20→21:02)
[2017-12-21] MEDS: METOPROLOL TARTRATE 25 MG TAB PO SCH ×2 (08:22→21:02)
[2017-12-21] MEDS: cloNIDine HCL 0.1 MG TAB PO SCH ×2 (08:22→21:02)
[2017-12-21] MEDS: SODIUM CHLORIDE 0.9% FLUSH 10 ML FLUSH IV FLUSH SCH ×2 (09:00→21:02)
[2017-12-21] MEDS ORDERED: GENTAMICIN SULFATE 80 MG/2 ML VIAL ONE (09:28)
[2017-12-21] MEDS ORDERED: LIDOCAINE 1%/EPINEPHrine 1:100,000 SOLN 30 ML VIAL ONE (09:28)
[2017-12-21] MEDS ORDERED: VANCOMYCIN 1,000 MG/NS 250 ML IV SCH ×2 (11:00)
[2017-12-21] MEDS ORDERED: DO NOT ADM ANY ANTICOAGULANT DRUGS PRN (11:11)
[2017-12-21] MEDS ORDERED: MORPHINE SULFATE 4 MG/ML INJ ONE (11:15)
--- NOTE | 2017-12-21 11:16 | HHI.PR ---
Immediate Post Op Note Procedure Date: Dec 21, 2017 Pre Op Diagnosis: (1) Decubitus ulcer of buttock, stage 4 Post Op Diagnosis: (1) Decubitus ulcer of buttock, stage 4 Surgeon: Lalitha Lehman All Terrain Vehicle Racer(s): None Procedure: 1. Excisional debridement of the left ischial decubitus ulcer. 2. Placement of Wound VAC Estimated blood loss: 50 ml Anesthesia: General Drains: Other (wound vac) Patient to: PACU Patient Condition: Good Date/Time of Procedure: SEE SURGICAL CARE RECORD Lalitha Lehman MD Dec 21, 2017 11:16
[2017-12-21] MEDS: *MEPERIDINE 25 MG INJ VIAL PERIprocedural Use ONLY ONE (11:24)
--- NOTE | 2017-12-21 11:52 | MP ---
cc: Lalitha Lehman MD DATE OF OPERATION: PREOPERATIVE DIAGNOSIS: Decubitus ulcer of left ischial area, stage IV. POSTOPERATIVE DIAGNOSIS: Decubitus ulcer of left ischial area, stage IV. PROCEDURES PERFORMED: 1. Excisional debridement of left ischial decubitus ulcer, including muscle and bone. 2. Placement of wound vacuum-assisted closure. ANESTHESIA: General. SURGEON: Axel Lehman MD INDICATIONS: A 72-year-old male with history of paraplegia and severe decubitus ulcer on the left side. The ischial bone was exposed. There was significant necrotic material. It did track up toward his left testicle where there was a small pocket present. At the completion of the procedure, all the necrotic material had been debrided and the wound VAC placed. OPERATIVE TIME: Approximately 1 hour. ESTIMATED BLOOD LOSS: Approximately 50-100 mL PROCEDURE IN DETAIL: The patient was induced under general anesthesia, placed in a prone position. The buttock area was prepped with Betadine and draped in the usual sterile fashion. Attention was first turned to the left ischial area where the necrotic material was debrided. There was a significant amount of subcutaneous tissue and muscle. This was debrided. The Versajet was then used to debride some of the skin, which was also excised, as well as necrotic material. The ischium was debrided of sharp bony prominence, and the bone itself, though, appeared to be good, healthy with good perfusion. Once the bony prominences were removed, they were filed down to a nice smooth surface. The Versajet was used to completely remove the remaining necrotic material. The wound was then copiously irrigated with saline and Betadine solution, which was also poured into the pocket. A wound VAC was then placed into the defect and covered with the appropriate plastic. A bridge was created laterally in order to allow for better nursing care and less pressure. There was a little bit of a leak in the testicular area, so when the patient was placed back into a supine position, additional Mastisol and plastic was placed, and this gave an excellent seal with adequate suction. The patient was then taken from the operating room to the recovery room in satisfactory condition, having tolerated the procedure well. POSTOPERATIVE INSTRUCTIONS: Include keeping the wound VAC in place and giving him adequate nutrition. MD ASIA Nunn/ELIDA , 11:37 AM , 11:50 AM
[2017-12-21] MEDS ORDERED: PHENYLEPH/NS 1000 MCG/10 ML SYR IV ONE (12:00)
[2017-12-21] MEDS ORDERED: ROCURONIUM INJ 50 MG/5 ML SYRINGE IV PUSH ONE (12:00)
[2017-12-21] MEDS ORDERED: DEXAMETHASONE SOD PHOS 4 MG/ML VIAL IV ONE (12:00)
[2017-12-21] MEDS ORDERED: NEOSTIGMINE 5 MG/5 ML SYRINGE IV PUSH ONE (12:00)
[2017-12-21] MEDS ORDERED: GLYCOPYRROLATE 1 MG/5 ML SYRINGE IV PUSH ONE (12:00)
[2017-12-21] MEDS ORDERED: LIDOCAINE HCL 1% PF 5 ML SYRINGE OTHER ONE (12:00)
[2017-12-21] MEDS ORDERED: PROPOFOL 200 MG/20 ML AMP IV ONE (12:00)
[2017-12-21] MEDS ORDERED: ONDANSETRON HCL 4 MG/2 ML VIAL IV PUSH ONE (12:00)
[2017-12-21] MEDS ORDERED: SIMV80TA PO (12:37)
[2017-12-21] MEDS ORDERED: AMLO5TAB2 PO (12:37)
--- NOTE | 2017-12-21 12:38 | HHI.PR ---
Subjective Remarks Patient seen this afternoon following surgery. Says he is feeling all right. Reports pain is controlled. Denies any chest pain shortness of breath Objective Vital Signs Date Time Temp Pulse Resp B/P (MAP) Pulse Ox O2 Delivery O2 Flow Rate FiO2 12/21/17 11:55 97.6 78 20 126/56 (79) 97 Nasal Cannula 2 12/21/17 11:45 97.6 78 20 126/56 (79) 97 Nasal Cannula 2 12/21/17 11:30 76 20 136/55 (82) 98 Nasal Cannula 2 12/21/17 11:15 81 20 133/65 (87) 99 Nasal Cannula 2 12/21/17 11:07 97.6 83 20 137/70 (92) 99 Nasal Cannula 2 12/21/17 08:01 94 12/21/17 08:00 97.7 83 17 134/67 (89) 95 12/21/17 04:00 98.9 78 18 139/65 (89) 98 12/21/17 01:00 72 12/21/17 00:00 98.4 69 16 121/61 (81) 97 12/20/17 20:01 101 16 12/20/17 20:00 99.4 16 10 162/77 (105) 97 12/20/17 16:00 98.1 85 18 153/65 (94) 91 I/O 12/20/17 12/20/17 12/20/17 12/21/17 12/21/17 12/21/17 07:00 15:00 23:00 07:00 15:00 23:00 Intake Total 250 ml 1050 ml 600 ml Output Total 200 ml 500 ml Balance 50 ml 1050 ml 100 ml Intake IV Total 250 ml 1050 ml 600 ml Output Urine Total 200 ml 450 ml Estimated Blood Loss 50 ml # Voids 2 Result Diagram: 12/20/17 0704 12/20/17 0704 Objective Remarks GENERAL: Patient sitting up in bed. Appears comfortable. Alert SKIN: Warm and dry. HEAD: Normocephalic. EYES: No scleral icterus. No injection or drainage. NECK: Supple, trachea midline. No JVD. CARDIOVASCULAR: Regular rate and rhythm without murmurs, gallops, or rubs. RESPIRATORY: Breath sounds equal bilaterally. No accessory muscle use. GASTROINTESTINAL: Abdomen soft, non-tender, nondistended. MUSCULOSKELETAL: No cyanosis, or edema. BACK: Nontender without obvious deformity. No CVA tenderness. A/P Assessment and Plan // Infected decubitus ulcer/sepsis Patient with leukocytosis, tachycardia Wound, blood cultures pending Vancomycin/Zosyn Wound care consulted, appreciate assistance Infectious disease consulted, appreciate assistance Plastic surgery consulted, appreciate assistance = Antibiotics. Follow-up plastic surgery consultation. Appreciate assistance. = 12/21. Status post excisional debridement. Continue antibiotics as per ID. Cultures pending. //Urinary tract infection Urine culture pending Antibiotics as above = Urine culture with mixed zuleika. //Acute kidney injury BUN/81 creatinine 2.08 May be chronic component, no recent values for comparison IV fluid hydration Monitor renal function = Continue IV fluids. BUN improving. //Hypertension/hyperlipidemia Continue home medications FEN Heart healthy diet Electrolytes: Monitor and replete as needed NS at 75 cc/hour Heparin Discharge Planning Patient is paraplegic. =may need IV abx =may need wound vac will need ID/plastics clearance Wayne Peoples MD Dec 21, 2017 12:38
[2017-12-21 14:28] LABS: BASOPHIL # 0.1 TH/MM3 (0-0.2); BASOPHIL % 0.4 % (0.0-2.0); EOSINOPHIL % 0.1 % (0.0-4.0); HEMOGLOBIN 11.9 GM/DL (13.0-17.0); LYMPH % 2.3 % (9.0-44.0); LYMPHOCYTE # 0.6 TH/MM3 (1.0-4.8); MEAN CELL VOLUME 97.6 FL (80.0-100.0); MEAN CORPUSCULAR HEMOGLOBIN 29.8 PG (27.0-34.0); MEAN CORPUSCULAR HGB CONC 30.6 % (32.0-36.0); MEAN PLATELET VOLUME 10.5 FL (7.0-11.0); MONO % 1.1 % (0.0-8.0); MONOCYTE # 0.3 TH/MM3 (0-0.9); NEUT % 96.1 % (16.0-70.0); PLATELET COUNT 309 TH/MM3 (150-450); RED BLOOD COUNT 3.99 MIL/MM3 (4.50-5.90); RED CELL DISTRIBUTION WIDTH 14.6 % (11.6-17.2); WHITE BLOOD COUNT 28.1 TH/MM3 (4.0-11.0)
[2017-12-21 15:49] LABS: BANDS 6 % (0-6); LYMPHOCYTES 1 % (9-44); METAMYELOCYTES 3 % (0-1); MONOCYTES 1 % (0-8); NEUTROPHIL # MANUAL DIFF 27.5 TH/MM3 (1.8-7.7); POLYS (SEG NEUTROPHILS) 89 % (16-70)
[2017-12-21 15:57] LABS: ALBUMIN 1.7 GM/DL (3.4-5.0); BICARBONATE 23.9 MEQ/L (21.0-32.0); C-REACTIVE PROTEIN 16.6 MG/DL (0.00-0.30); CALCIUM 8.3 MG/DL (8.5-10.1); CREATININE 1.36 MG/DL (0.60-1.30); MAGNESIUM 2.3 MG/DL (1.5-2.5); PHOSPHORUS 2.8 MG/DL (2.5-4.9)
[2017-12-21] MEDS: SODIUM CHLOR 0.45% 1000 ML INJ 1,000 ML IV SCH ×2 (16:47→21:03)
[2017-12-21] MEDS: VANCOMYCIN INJ 1,250 MG in SODIUM CHLOR 0.9% 250 ML INJ 250 ML IV SCH (18:25)
[2017-12-22] VITALS (9 sets, daily range): BP systolic 122–156; BP diastolic 58–78; PULSE 66–88; RESP 16–18; TEMP 97.5–99.4; O2SAT 96–100
[2017-12-22] MEDS: PIPERACIL-TAZO 2.25 GM PREMIX 50 ML IV SCH ×4 (03:22→21:01)
[2017-12-22] MEDS: HEPARIN SODIUM - SQ 10,000 UNITS/ML VIAL SQ SCH ×3 (04:13→21:02)
[2017-12-22 06:42] LABS: AUTOMATED NEUTROPHIL # 22.9 TH/MM3 (1.8-7.7); BASOPHIL % 0.2 % (0.0-2.0); EOSINOPHIL # 0.1 TH/MM3 (0-0.4); EOSINOPHIL % 0.4 % (0.0-4.0); HEMATOCRIT 29.9 % (39.0-51.0); HEMOGLOBIN 9.4 GM/DL (13.0-17.0); LYMPH % 4.5 % (9.0-44.0); LYMPHOCYTE # 1.1 TH/MM3 (1.0-4.8); MEAN CELL VOLUME 96.3 FL (80.0-100.0); MEAN CORPUSCULAR HEMOGLOBIN 30.4 PG (27.0-34.0); MEAN CORPUSCULAR HGB CONC 31.6 % (32.0-36.0); MEAN PLATELET VOLUME 9.5 FL (7.0-11.0); MONOCYTE # 0.7 TH/MM3 (0-0.9); NEUT % 91.9 % (16.0-70.0); PLATELET COUNT 245 TH/MM3 (150-450); RED CELL DISTRIBUTION WIDTH 13.9 % (11.6-17.2); WHITE BLOOD COUNT 24.9 TH/MM3 (4.0-11.0)
[2017-12-22 07:12] LABS: ALBUMIN 1.6 GM/DL (3.4-5.0); BICARBONATE 21.7 MEQ/L (21.0-32.0); CALCIUM 7.8 MG/DL (8.5-10.1); CREATININE 1.3 MG/DL (0.60-1.30)
[2017-12-22 07:14] LABS: PHOSPHORUS 2.4 MG/DL (2.5-4.9)
[2017-12-22] MEDS: DOCUSATE SODIUM 50 MG/SENNA 8.6 MG TAB PO SCH ×2 (08:24→21:01)
[2017-12-22] MEDS: METOPROLOL TARTRATE 25 MG TAB PO SCH ×2 (08:24→21:01)
[2017-12-22] MEDS: cloNIDine HCL 0.1 MG TAB PO SCH ×2 (08:24→21:01)
[2017-12-22] MEDS: SODIUM CHLORIDE 0.9% FLUSH 10 ML FLUSH IV FLUSH SCH ×2 (08:25→21:00)
--- NOTE | 2017-12-22 09:48 | HHI.PR ---
Subjective Remarks Patient says he is feeling all right. Denies any chest pain or shortness of breath. Reports pain is controlled. Objective Vital Signs Date Time Temp Pulse Resp B/P (MAP) Pulse Ox O2 Delivery O2 Flow Rate FiO2 12/22/17 08:00 97.7 67 16 126/58 (80) 100 12/22/17 04:31 98.0 68 18 129/77 (94) 98 12/22/17 00:09 97.5 74 18 122/66 (84) 99 12/21/17 20:27 97.7 93 18 135/66 (89) 96 12/21/17 20:00 86 12/21/17 16:00 97.6 83 17 137/64 (88) 100 12/21/17 12:00 97.4 76 17 132/64 (86) 98 12/21/17 11:55 97.6 78 20 126/56 (79) 97 Nasal Cannula 2 12/21/17 11:45 97.6 78 20 126/56 (79) 97 Nasal Cannula 2 12/21/17 11:30 76 20 136/55 (82) 98 Nasal Cannula 2 12/21/17 11:15 81 20 133/65 (87) 99 Nasal Cannula 2 12/21/17 11:07 97.6 83 20 137/70 (92) 99 Nasal Cannula 2 I/O 12/21/17 12/21/17 12/21/17 12/22/17 12/22/17 12/22/17 06:59 14:59 22:59 06:59 14:59 22:59 Intake Total 600 ml 1560 ml 730 ml Output Total 500 ml 880 ml Balance 100 ml 1560 ml -150 ml Intake Oral 1250 ml 680 ml IV Total 600 ml 310 ml 50 ml Output Urine Total 450 ml 780 ml Drainage Total 100 ml Estimated Blood Loss 50 ml # Bowel Movements 0 Result Diagram: 12/22/1762212/22/17622 Objective Remarks GENERAL: Patient sitting up in bed eating breakfast. Appears comfortable. Alert SKIN: Warm and dry. HEAD: Normocephalic. EYES: No scleral icterus. No injection or drainage. NECK: Supple, trachea midline. No JVD. CARDIOVASCULAR: Regular rate and rhythm without murmurs, gallops, or rubs. RESPIRATORY: Breath sounds equal bilaterally. No accessory muscle use. GASTROINTESTINAL: Abdomen soft, non-tender, nondistended. MUSCULOSKELETAL: No cyanosis, or edema. A/P Assessment and Plan // Infected decubitus ulcer //Severe sepsis on admission. With WU Patient with leukocytosis, tachycardia Wound, blood cultures pending Vancomycin/Zosyn Wound care consulted, appreciate assistance Infectious disease consulted, appreciate assistance Plastic surgery consulted, appreciate assistance = Antibiotics. Follow-up plastic surgery consultation. Appreciate assistance. = 12/21. Status post excisional debridement. Continue antibiotics as per ID. Cultures pending. = Continue wound VAC. Nutritional supplements. Antibiotics as per ID. Repeat blood cultures pending. Appreciate ID and plastic surgery assistance. //Urinary tract infection Urine culture pending Antibiotics as above = Urine culture with mixed zuleika. //Acute kidney injury BUN/81 creatinine 2.08 May be chronic component, no recent values for comparison IV fluid hydration Monitor renal function = Much improved. Creatinine 1.3. Continue IV fluids. //Hypertension/hyperlipidemia Continue home medications FEN Heart healthy diet Electrolytes: Monitor and replete as needed NS at 75 cc/hour Heparin Discharge Planning Patient is paraplegic. =may need IV abx =may need wound vac will need ID/plastics clearance = Will need rehab. = PT to reevaluate. Wayne Peoples MD Dec 22, 2017 09:48
[2017-12-22 09:59] LABS: BANDS 13 % (0-6); LYMPHOCYTES 2 % (9-44); METAMYELOCYTES 3 % (0-1); MONOCYTES 3 % (0-8); NEUTROPHIL # MANUAL DIFF 23.4 TH/MM3 (1.8-7.7); POLYS (SEG NEUTROPHILS) 78 % (16-70)
[2017-12-22] MEDS: SODIUM CHLOR 0.45% 1000 ML INJ 1,000 ML IV SCH (12:31)
[2017-12-22] MEDS: VANCOMYCIN INJ 1,250 MG in SODIUM CHLOR 0.9% 250 ML INJ 250 ML IV SCH (17:46)
--- NOTE | 2017-12-22 18:53 | HHI.IDPN ---
Subjective Subjective Remarks 72-year-old paraplegic with a past medical history significant for hypertension and hyperlipidemia presents to the emergency department for the evaluation of a wound on his buttock. The patient reports that when he transfers from the bed to his chair he will occasionally fall on the floor and have to scoot across the floor on his buttock. He reports that he initially had a small wound in January 2017 that by July 2017 had progressed to a stage III decubitus ulcer. In October 2017 the patient was evaluated at the [facility] in [place] where he was told that his ulcer was healing and that it was now a stage II. The patient reports that he fell out of bed 2 times in the last week and has irritated the wound. He states there is foul-smelling drainage coming from the area. He denies any fevers/chills. No chest pain or shortness of breath. No abdominal pain. No nausea/vomiting/diarrhea. No lateralizing signs/symptoms. ID consulted for eval and Mment of Infected stage III decub ulcer possible underlying myositis with necrotic muscle. Antibiotics Zosyn IV Vanco IV Lines Lines ok Past Medical History Paraplegia Hypertension Hyperlipidemia Left hip surgery Allergies: Coded Allergies: No Known Allergies (Unverified Allergy, Unknown, 12/19/17) Objective . Vital Signs Date Time Temp Pulse Resp B/P (MAP) Pulse Ox O2 Delivery O2 Flow Rate FiO2 12/22/17 16:00 99.0 87 16 146/67 (93) 100 12/22/17 12:00 97.8 72 16 141/65 (90) 100 12/22/17 11:55 70 12/22/17 08:10 66 12/22/17 08:00 97.7 67 16 126/58 (80) 100 12/22/17 04:31 98.0 68 18 129/77 (94) 98 12/22/17 00:09 97.5 74 18 122/66 (84) 99 12/21/17 20:27 97.7 93 18 135/66 (89) 96 12/21/17 20:00 86 12/22/17 12/22/17 12/23/17 15:00 23:00 07:00 Intake Total 300 ml Output Total 850 ml Balance -550 ml Intake Oral 300 ml Output Urine Total 800 ml Drainage Total 50 ml # Bowel Movements 1 . Laboratory Tests Test 12/21/17 13:43 6/24/18 06:23 White Blood Count 28.1 TH/MM3 24.9 TH/MM3 Red Blood Count 3.99 MIL/MM3 3.10 MIL/MM3 Hemoglobin 11.9 GM/DL 9.4 GM/DL Hematocrit 39.0 % 29.9 % Mean Corpuscular Volume 97.6 FL 96.3 FL Mean Corpuscular Hemoglobin 29.8 PG 30.4 PG Mean Corpuscular Hemoglobin Concent 30.6 % 31.6 % Red Cell Distribution Width 14.6 % 13.9 % Platelet Count 309 TH/MM3 245 TH/MM3 Mean Platelet Volume 10.5 FL 9.5 FL Neutrophils (%) (Auto) 96.1 % 91.9 % Lymphocytes (%) (Auto) 2.3 % 4.5 % Monocytes (%) (Auto) 1.1 % 3.0 % Eosinophils (%) (Auto) 0.1 % 0.4 % Basophils (%) (Auto) 0.4 % 0.2 % Neutrophils # (Auto) 27.0 TH/MM3 22.9 TH/MM3 Lymphocytes # (Auto) 0.6 TH/MM3 1.1 TH/MM3 Monocytes # (Auto) 0.3 TH/MM3 0.7 TH/MM3 Eosinophils # (Auto) 0.0 TH/MM3 0.1 TH/MM3 Basophils # (Auto) 0.1 TH/MM3 0.0 TH/MM3 CBC Comment AUTO DIFF AUTO DIFF Differential Total Cells Counted 100 100 Neutrophils % (Manual) 89 % 78 % Band Neutrophils % 6 % 13 % Lymphocytes % 1 % 2 % Monocytes % 1 % 3 % Neutrophils # (Manual) 27.5 TH/MM3 23.4 TH/MM3 Metamyelocytes 3 % 3 % Differential Comment FINAL DIFF MANUAL FINAL DIFF MANUAL Hematology Comments Eosinophils % 1 % Platelet Estimate NORMAL Platelet Morphology Comment NORMAL Laboratory Tests Test 12/21/17 15:15 12/22/17 06:23 Blood Urea Nitrogen 38 MG/DL 34 MG/DL Creatinine 1.36 MG/DL 1.30 MG/DL Random Glucose 158 MG/DL 173 MG/DL Albumin 1.7 GM/DL 1.6 GM/DL Calcium Level 8.3 MG/DL 7.8 MG/DL Phosphorus Level 2.8 MG/DL 2.4 MG/DL Magnesium Level 2.3 MG/DL 2.0 MG/DL Sodium Level 146 MEQ/L 138 MEQ/L Potassium Level 3.9 MEQ/L 4.4 MEQ/L Chloride Level 113 MEQ/L 108 MEQ/L Carbon Dioxide Level 23.9 MEQ/L 21.7 MEQ/L Anion Gap 9 MEQ/L 8 MEQ/L Estimat Glomerular Filtration Rate 62 ML/MIN 66 ML/MIN Total Creatine Kinase 139 U/L C-Reactive Protein 16.60 MG/DL Microbiology Date/Time Source Procedure Growth Status 12/21/17 15:56 Blood Peripheral Aerobic Blood Culture - Preliminary NO GROWTH IN 1 DAY Resulted 12/21/17 15:56 Blood Peripheral Anaerobic Blood Culture - Preliminary NO GROWTH IN 1 DAY Resulted 12/21/17 15:50 Blood Peripheral Aerobic Blood Culture - Preliminary NO GROWTH IN 1 DAY Resulted 12/21/17 15:50 Blood Peripheral Anaerobic Blood Culture - Preliminary NO GROWTH IN 1 DAY Resulted Imaging Last Impressions Chest X-Ray 12/19/17 1315 Signed Impressions: CONCLUSION: No acute cardiopulmonary process. Physical Exam GENERAL: This is a well-nourished, well-developed patient, in no apparent distress. SKIN: No rashes, ecchymoses or lesions. Cool and dry. HEAD: Atraumatic. Normocephalic. No temporal or scalp tenderness. EYES: Pupils equal round and reactive. Extraocular motions intact. No scleral icterus. No injection or drainage. ENT: Nose without bleeding, purulent drainage or septal hematoma. Throat without erythema, tonsillar hypertrophy or exudate. Uvula midline. Airway patent. NECK: Trachea midline. No JVD or lymphadenopathy. Supple, nontender, no meningeal signs. CARDIOVASCULAR: Regular rate and rhythm without murmurs, gallops, or rubs. RESPIRATORY: Clear to auscultation. Breath sounds equal bilaterally. No wheezes , rales, or rhonchi. GASTROINTESTINAL: Abdomen soft, non-tender, nondistended. No hepato-splenomegaly , or palpable masses. No guarding. MUSCULOSKELETAL: Extremities without clubbing, cyanosis, or edema. No joint tenderness, effusion, or edema noted. No calf tenderness. Negative Homans sign bilaterally. NEUROLOGICAL: Awake and alert. Right buttock area: decub ulcer noted. Warmth noted. Patient is dark skinned no erythema can be appreciated. IV line sites with no e.o infection. Assessment & Plan Remarks Infected stage III decub ulcer ischial s/p debridement. Possible sepsis on admission Gram positive bacteremia Acute renal failure: prerenal, sepsis, ? baseline Recs Continue Zosyn IV Continue Vanco IV (target 10-15) for GP bacteremia pending ID of organism Follow cultures Follow clinically. No intraop cultures to guide therapy. elba arreola gusset ripper. Lisa Oliva MD Dec 22, 2017 18:53
[2017-12-23 00:25] VITALS: BP 154/72; PULSE 90; RESP 20; TEMP 97.9; O2SAT 96
[2017-12-23] MEDS: SODIUM CHLOR 0.45% 1000 ML INJ 1,000 ML IV SCH ×2 (02:07→14:47)
[2017-12-23] MEDS: PIPERACIL-TAZO 2.25 GM PREMIX 50 ML IV SCH ×4 (02:26→21:01)
[2017-12-23 04:33] VITALS: BP 155/69; PULSE 70; RESP 18; TEMP 98.4; O2SAT 98
[2017-12-23] MEDS: HEPARIN SODIUM - SQ 10,000 UNITS/ML VIAL SQ SCH ×3 (04:58→21:02)
[2017-12-23 08:00] VITALS: BP 161/78; PULSE 84; RESP 20; TEMP 97.7; O2SAT 99
[2017-12-23] MEDS: SODIUM CHLORIDE 0.9% FLUSH 10 ML FLUSH IV FLUSH SCH ×2 (08:53→21:02)
[2017-12-23] MEDS: cloNIDine HCL 0.1 MG TAB PO SCH ×2 (08:55→21:01)
[2017-12-23] MEDS: METOPROLOL TARTRATE 25 MG TAB PO SCH ×2 (08:55→21:01)
[2017-12-23] MEDS: DOCUSATE SODIUM 50 MG/SENNA 8.6 MG TAB PO SCH ×2 (08:56→21:01)
[2017-12-23] MEDS: SODIUM HYPOCHLORITE 0.125% 500 ML BTL TOPICAL SCH (08:57)
--- NOTE | 2017-12-23 10:32 | HHI.PR ---
Subjective Remarks Patient says he is feeling well, however says he feels weak and does not feel like he can go home. Denies any chest pain or shortness of breath. Reports pain is controlled. Objective Vital Signs Date Time Temp Pulse Resp B/P (MAP) Pulse Ox O2 Delivery O2 Flow Rate FiO2 12/23/17 04:33 98.4 70 18 155/69 (97) 98 12/23/17 00:25 97.9 90 20 154/72 (99) 96 12/22/17 20:44 99.4 88 18 156/78 (104) 96 12/22/17 20:04 85 12/22/17 16:00 99.0 87 16 146/67 (93) 100 12/22/17 12:00 97.8 72 16 141/65 (90) 100 12/22/17 11:55 70 I/O 12/22/17 12/22/17 12/22/17 12/23/17 12/23/17 12/23/17 07:00 15:00 23:00 07:00 15:00 23:00 Intake Total 730 ml 562 ml 930 ml Output Total 880 ml 850 ml 1850 ml Balance -150 ml -288 ml -920 ml Intake Oral 680 ml 300 ml 580 ml IV Total 50 ml 262 ml 350 ml Output Urine Total 780 ml 800 ml 1800 ml Drainage Total 100 ml 50 ml 50 ml # Bowel Movements 0 1 0 Result Diagram: 12/22/1762212/22/17622 Objective Remarks GENERAL: Patient sitting up in bed. Appears comfortable. Alert SKIN: Warm and dry. HEAD: Normocephalic. EYES: No scleral icterus. No injection or drainage. NECK: Supple, trachea midline. No JVD. CARDIOVASCULAR: Regular rate and rhythm without murmurs, gallops, or rubs. RESPIRATORY: Breath sounds equal bilaterally. No accessory muscle use. GASTROINTESTINAL: Abdomen soft, non-tender, nondistended. Wound VAC in place MUSCULOSKELETAL: No cyanosis, or edema. A/P Assessment and Plan // Infected decubitus ulcer //Severe sepsis on admission. With WU Patient with leukocytosis, tachycardia Wound, blood cultures pending Vancomycin/Zosyn Wound care consulted, appreciate assistance Infectious disease consulted, appreciate assistance Plastic surgery consulted, appreciate assistance = Antibiotics. Follow-up plastic surgery consultation. Appreciate assistance. = 12/21. Status post excisional debridement. Continue antibiotics as per ID. Cultures pending. = Continue wound VAC. Nutritional supplements. Antibiotics as per ID. Repeat blood cultures negative so far. Appreciate ID and plastic surgery assistance. Labs pending //Urinary tract infection Urine culture pending Antibiotics as above = Urine culture with mixed zuleika. //Acute kidney injury BUN/81 creatinine 2.08 May be chronic component, no recent values for comparison IV fluid hydration Monitor renal function = Much improved. Creatinine 1.3. Continue IV fluids. Labs pending //Hypertension/hyperlipidemia Continue home medications FEN Heart healthy diet Electrolytes: Monitor and replete as needed NS at 75 cc/hour Heparin Discharge Planning Patient is paraplegic. =may need IV abx =may need wound vac will need ID/plastics clearance = Will need rehab. = PT to reevaluate. Wayne Peoples MD Dec 23, 2017 10:32
[2017-12-23 12:00] VITALS: BP 142/76; PULSE 74; RESP 18; TEMP 97.7; O2SAT 100
[2017-12-23 15:02] LABS: AUTOMATED NEUTROPHIL # 14.6 TH/MM3 (1.8-7.7); BASOPHIL # 0.1 TH/MM3 (0-0.2); BASOPHIL % 0.8 % (0.0-2.0); EOSINOPHIL # 0.1 TH/MM3 (0-0.4); EOSINOPHIL % 0.8 % (0.0-4.0); HEMATOCRIT 30.9 % (39.0-51.0); HEMOGLOBIN 9.8 GM/DL (13.0-17.0); LYMPH % 7.2 % (9.0-44.0); LYMPHOCYTE # 1.2 TH/MM3 (1.0-4.8); MEAN CELL VOLUME 95.1 FL (80.0-100.0); MEAN CORPUSCULAR HEMOGLOBIN 30.3 PG (27.0-34.0); MEAN CORPUSCULAR HGB CONC 31.8 % (32.0-36.0); MEAN PLATELET VOLUME 9.6 FL (7.0-11.0); MONO % 3.4 % (0.0-8.0); MONOCYTE # 0.6 TH/MM3 (0-0.9); NEUT % 87.8 % (16.0-70.0); PLATELET COUNT 325 TH/MM3 (150-450); RED BLOOD COUNT 3.24 MIL/MM3 (4.50-5.90); RED CELL DISTRIBUTION WIDTH 14.1 % (11.6-17.2); WHITE BLOOD COUNT 16.6 TH/MM3 (4.0-11.0)
[2017-12-23 15:39] LABS: ALBUMIN 1.7 GM/DL (3.4-5.0); BICARBONATE 24.6 MEQ/L (21.0-32.0); CALCIUM 7.9 MG/DL (8.5-10.1); CREATININE 1.15 MG/DL (0.60-1.30); MAGNESIUM 1.8 MG/DL (1.5-2.5); PHOSPHORUS 1.6 MG/DL (2.5-4.9)
[2017-12-23 15:57] LABS: BANDS 2 % (0-6); LYMPHOCYTES 4 % (9-44); METAMYELOCYTES 2 % (0-1); MONOCYTES 4 % (0-8); NEUTROPHIL # MANUAL DIFF 15.1 TH/MM3 (1.8-7.7); POLYS (SEG NEUTROPHILS) 87 % (16-70)
--- NOTE | 2017-12-23 16:50 | PD.WCN.NOT ---
Wound Consult Description: Consult for WOUND MANAGEMENT of Sacral per Dr Harmon Recommendation: Cleanse left lateral lower extremity with wound cleanser and gauze Q5D and PRN for saturation or dislodgement. Apply Maxorb II over wound beds and cover with gauze. Secure primary dressing with rolled gauze and ROSELYN wrap. Date dressing. Right ischial tuberosity DAILY: Cleanse wound with adherent necrotic tissue with NS and gauze. Apply nickel thick Santyl to NS moistened gauze and place in/on wound bed. Apply Cavilon skin barrier film to periwound and allow to dry. Secure with bordered gauze and date. Neg Pressure Wound Therapy Wound Location Wound Location: Left Ischial Wound Description Length: 14.5cm Width: 5.8cm Depth: 4.2cm Wound bed appearance: 50% red non granular muscle 20% beefy red granular tissue 20% Fascia 10% bone Periwound appearance: Other (multiple diffuse stage 2 pressure injuries.) Settings Suction: 125 mmHg, Continuous Intensity: Low Other Information: Bridged, Windowpaned, Mushroomed Foam type: Black, White Number of pieces: 2 (1 white 1 black) Additonal Information Patient was seen today for initial wound vac change on floor.Patient alert and oriented x4 denies any acute discomfort refused pain medication.Wound vac dressing removed with some difficulty due to placement.Wound cleansed with normal saline pat dry skin prep applied to periwound and bridging area.Stoma paste applied to distal wound edge for protection good seal.White single piece sponge applied to exposed bone.Single piece black sponge applied to wound base and bridged to left anterior thigh.Track pad applied and suction started @ 125 mmHg low continuous suction with no leaks noted.Patient tolerated wound care well.No further questions or concern upon writers departure .Sales Trainer noted no Santyl or dressing on right ischial.No Santyl found in patients room.Calazime barrier cream applied to diffuse stage 2 pressure injuries. Quinn Coyle [facility] Dec 23, 2017 16:50
[2017-12-23] MEDS ORDERED: PHARMACY ORDERED LAB ONE (17:45)
[2017-12-23] MEDS: VANCOMYCIN INJ 1,250 MG in SODIUM CHLOR 0.9% 250 ML INJ 250 ML IV SCH (17:54)
[2017-12-23 20:00] VITALS: BP 167/75; PULSE 100; RESP 20; TEMP 100.7; O2SAT 95
[2017-12-24] VITALS: BP 153/75; PULSE 86; RESP 18; TEMP 100; O2SAT 98
[2017-12-24] MEDS: PIPERACIL-TAZO 2.25 GM PREMIX 50 ML IV SCH ×2 (03:48→08:11)
[2017-12-24] MEDS: SODIUM CHLOR 0.45% 1000 ML INJ 1,000 ML IV SCH ×2 (03:48→20:36)
[2017-12-24 04:00] VITALS: BP 153/75; PULSE 85; RESP 18; TEMP 98.2; O2SAT 98
[2017-12-24] MEDS: HEPARIN SODIUM - SQ 10,000 UNITS/ML VIAL SQ SCH ×3 (06:14→20:36)
[2017-12-24 08:00] VITALS: BP 154/85; PULSE 89; RESP 18; TEMP 97.9; O2SAT 98
[2017-12-24] MEDS: DOCUSATE SODIUM 50 MG/SENNA 8.6 MG TAB PO SCH ×2 (08:01→20:35)
[2017-12-24] MEDS: METOPROLOL TARTRATE 25 MG TAB PO SCH (08:02)
[2017-12-24] MEDS: cloNIDine HCL 0.1 MG TAB PO SCH (08:02)
[2017-12-24] MEDS: SODIUM CHLORIDE 0.9% FLUSH 10 ML FLUSH IV FLUSH SCH ×2 (08:11→20:34)
--- NOTE | 2017-12-24 10:22 | HHI.PR ---
Subjective Remarks The feeling right. Denies any chest pain shortness of breath. Reports pain is controlled. Objective Vital Signs Date Time Temp Pulse Resp B/P (MAP) Pulse Ox O2 Delivery O2 Flow Rate FiO2 12/24/17 04:00 98.2 85 18 153/75 (101) 98 12/24/17 00:00 100.0 86 18 153/75 (101) 98 12/23/17 20:00 100.7 100 20 167/75 (105) 95 12/23/17 12:00 97.7 74 18 142/76 (98) 100 I/O 12/23/17 12/23/17 12/23/17 12/24/17 12/24/17 12/24/17 06:59 14:59 22:59 06:59 14:59 22:59 Intake Total 930 ml 50 ml Output Total 1850 ml 2200 ml Balance -920 ml -2150 ml Intake Oral 580 ml IV Total 350 ml 50 ml Output Urine Total 1800 ml 2200 ml Drainage Total 50 ml # Bowel Movements 0 1 Result Diagram: 12/23/17 1428 12/23/17 1428 Objective Remarks GENERAL: Patient sitting up in bed. Appears comfortable. Alert SKIN: Warm and dry. HEAD: Normocephalic. EYES: No scleral icterus. No injection or drainage. NECK: Supple, trachea midline. No JVD. CARDIOVASCULAR: Regular rate and rhythm without murmurs, gallops, or rubs. RESPIRATORY: Breath sounds equal bilaterally. No accessory muscle use. GASTROINTESTINAL: Abdomen soft, non-tender, nondistended. Wound VAC in place. No changes on exam. MUSCULOSKELETAL: No cyanosis, or edema. A/P Assessment and Plan // Infected decubitus ulcer //Severe sepsis on admission. With WU Patient with leukocytosis, tachycardia Wound, blood cultures pending Vancomycin/Zosyn Wound care consulted, appreciate assistance Infectious disease consulted, appreciate assistance Plastic surgery consulted, appreciate assistance = Antibiotics. Follow-up plastic surgery consultation. Appreciate assistance. = 12/21. Status post excisional debridement. Continue antibiotics as per ID. Cultures pending. = Continue wound VAC. Nutritional supplements. Antibiotics as per ID. Repeat blood cultures negative so far. Appreciate ID and plastic surgery assistance. Labs pending = 12/24. Discussed again with infectious disease. Continue on antibiotics. Unfortunately wound cultures not obtained. //Urinary tract infection Urine culture pending Antibiotics as above = Urine culture with mixed zuleika. //Acute kidney injury BUN/81 creatinine 2.08 May be chronic component, no recent values for comparison IV fluid hydration Monitor renal function = Much improved. Creatinine 1.2. Continue IV fluids. //Hypophosphatemia. 1.6 yesterday. Replace. Follow-up tomorrow. //Hypertension/hyperlipidemia Continue home medications FEN Heart healthy diet Electrolytes: Monitor and replete as needed NS at 60 cc/hour Heparin Discharge Planning Patient is paraplegic. =may need IV abx as per ID =will need wound vac will need ID/plastics clearance = Will need rehab. = PT to reevaluate. Wayne Peoples MD Dec 24, 2017 10:22
[2017-12-24] MEDS ORDERED: SODIUM PHOSPHATE INJ 15 MMOL in SODIUM CHLORIDE 0.9% INJ 150 ML IV ONE (10:30)
[2017-12-24 12:00] VITALS: BP 151/80; PULSE 86; RESP 16; TEMP 98.2; O2SAT 96
[2017-12-24] MEDS: PIPERACIL-TAZO 3.375 GM PREMIX 50 ML IV SCH ×2 (15:15→20:34)
[2017-12-24] MEDS ORDERED: VANCOMYCIN INJ 1,250 MG in SODIUM CHLOR 0.9% 250 ML INJ 250 ML IV SCH ×2 (15:15→18:00)
--- NOTE | 2017-12-24 17:44 | HHI.IDPN ---
Subjective Subjective Remarks 72-year-old paraplegic with a past medical history significant for hypertension and hyperlipidemia presents to the emergency department for the evaluation of a wound on his buttock. The patient reports that when he transfers from the bed to his chair he will occasionally fall on the floor and have to scoot across the floor on his buttock. He reports that he initially had a small wound in January 2017 that by July 2017 had progressed to a stage III decubitus ulcer. In October 2017 the patient was evaluated at the [facility] in [place] where he was told that his ulcer was healing and that it was now a stage II. The patient reports that he fell out of bed 2 times in the last week and has irritated the wound. He states there is foul-smelling drainage coming from the area. He denies any fevers/chills. No chest pain or shortness of breath. No abdominal pain. No nausea/vomiting/diarrhea. No lateralizing signs/symptoms. ID consulted for eval and Mment of Infected stage III decub ulcer possible underlying myositis with necrotic muscle. Antibiotics Zosyn IV Vanco IV Lines Lines ok Past Medical History Paraplegia Hypertension Hyperlipidemia Left hip surgery Allergies: Coded Allergies: No Known Allergies (Unverified Allergy, Unknown, 12/19/17) Objective . Vital Signs Date Time Temp Pulse Resp B/P (MAP) Pulse Ox O2 Delivery O2 Flow Rate FiO2 12/24/17 12:00 98.2 86 16 151/80 (103) 96 12/24/17 08:00 97.9 89 18 154/85 (108) 98 12/24/17 04:00 98.2 85 18 153/75 (101) 98 12/24/17 00:00 100.0 86 18 153/75 (101) 98 12/23/17 20:00 100.7 100 20 167/75 (105) 95 12/24/17 12/24/17 12/25/17 15:00 23:00 07:00 Intake Total 50 ml 155 ml Balance 50 ml 155 ml IV Total 50 ml 155 ml . Laboratory Tests Test 12/23/17 14:28 White Blood Count 16.6 TH/MM3 Red Blood Count 3.24 MIL/MM3 Hemoglobin 9.8 GM/DL Hematocrit 30.9 % Mean Corpuscular Volume 95.1 FL Mean Corpuscular Hemoglobin 30.3 PG Mean Corpuscular Hemoglobin Concent 31.8 % Red Cell Distribution Width 14.1 % Platelet Count 325 TH/MM3 Mean Platelet Volume 9.6 FL Neutrophils (%) (Auto) 87.8 % Lymphocytes (%) (Auto) 7.2 % Monocytes (%) (Auto) 3.4 % Eosinophils (%) (Auto) 0.8 % Basophils (%) (Auto) 0.8 % Neutrophils # (Auto) 14.6 TH/MM3 Lymphocytes # (Auto) 1.2 TH/MM3 Monocytes # (Auto) 0.6 TH/MM3 Eosinophils # (Auto) 0.1 TH/MM3 Basophils # (Auto) 0.1 TH/MM3 CBC Comment AUTO DIFF Differential Total Cells Counted 100 Neutrophils % (Manual) 87 % Band Neutrophils % 2 % Lymphocytes % 4 % Monocytes % 4 % Eosinophils % 1 % Neutrophils # (Manual) 15.1 TH/MM3 Metamyelocytes 2 % Differential Comment FINAL DIFF MANUAL Platelet Estimate NORMAL Platelet Morphology Comment NORMAL Laboratory Tests Test 12/23/17 14:28 Blood Urea Nitrogen 19 MG/DL Creatinine 1.15 MG/DL Random Glucose 225 MG/DL Albumin 1.7 GM/DL Calcium Level 7.9 MG/DL Phosphorus Level 1.6 MG/DL Magnesium Level 1.8 MG/DL Sodium Level 142 MEQ/L Potassium Level 3.8 MEQ/L Chloride Level 108 MEQ/L Carbon Dioxide Level 24.6 MEQ/L Anion Gap 9 MEQ/L Estimat Glomerular Filtration Rate 76 ML/MIN Imaging Last Impressions Chest X-Ray 12/19/17 1315 Signed Impressions: CONCLUSION: No acute cardiopulmonary process. Physical Exam GENERAL: This is a well-nourished, well-developed patient, in no apparent distress. SKIN: No rashes, ecchymoses or lesions. Cool and dry. HEAD: Atraumatic. Normocephalic. No temporal or scalp tenderness. EYES: Pupils equal round and reactive. Extraocular motions intact. No scleral icterus. No injection or drainage. ENT: Nose without bleeding, purulent drainage or septal hematoma. Throat without erythema, tonsillar hypertrophy or exudate. Uvula midline. Airway patent. NECK: Trachea midline. No JVD or lymphadenopathy. Supple, nontender, no meningeal signs. CARDIOVASCULAR: Regular rate and rhythm without murmurs, gallops, or rubs. RESPIRATORY: Clear to auscultation. Breath sounds equal bilaterally. No wheezes , rales, or rhonchi. GASTROINTESTINAL: Abdomen soft, non-tender, nondistended. No hepato-splenomegaly , or palpable masses. No guarding. MUSCULOSKELETAL: Extremities without clubbing, cyanosis, or edema. No joint tenderness, effusion, or edema noted. No calf tenderness. Negative Homans sign bilaterally. NEUROLOGICAL: Awake and alert. Right buttock area: decub ulcer noted. Warmth noted. Patient is dark skinned no erythema can be appreciated. IV line sites with no e.o infection. Assessment & Plan Remarks Infected stage III decub ulcer ischial s/p debridement. Possible sepsis on admission Gram positive bacteremia Acute renal failure: prerenal, sepsis, ? baseline Recs Continue Zosyn IV Continue Vanco IV (target 10-15) for GP bacteremia pending ID of organism Follow cultures Follow clinically. No intraop cultures to guide therapy. elba arreola drafting detailer. Lisa Oliva MD Dec 24, 2017 17:44
[2017-12-24 20:00] VITALS: BP 134/71; PULSE 95; RESP 18; TEMP 99.2; O2SAT 98
[2017-12-25] VITALS (7 sets, daily range): BP systolic 133–182; BP diastolic 60–88; PULSE 79–106; RESP 17–20; TEMP 97.4–100.5; O2SAT 96–100
[2017-12-25] MEDS: PIPERACIL-TAZO 3.375 GM PREMIX 50 ML IV SCH ×2 (01:05→07:37)
[2017-12-25] MEDS: METOPROLOL TARTRATE 25 MG TAB PO SCH ×3 (01:05→19:37)
[2017-12-25] MEDS: cloNIDine HCL 0.1 MG TAB PO SCH ×3 (01:05→19:37)
[2017-12-25] MEDS: HEPARIN SODIUM - SQ 10,000 UNITS/ML VIAL SQ SCH ×3 (04:52→19:37)
[2017-12-25] MEDS: DOCUSATE SODIUM 50 MG/SENNA 8.6 MG TAB PO SCH ×2 (07:36→19:36)
[2017-12-25] MEDS: SODIUM CHLORIDE 0.9% FLUSH 10 ML FLUSH IV FLUSH SCH ×2 (07:36→19:36)
[2017-12-25] MEDS: SODIUM HYPOCHLORITE 0.125% 500 ML BTL TOPICAL SCH (07:37)
[2017-12-25] MEDS: COLLAGENASE OINT 30 GM TUBE TOPICAL SCH (07:37)
[2017-12-25] MEDS ORDERED: EPIN1INJ21 SQ (08:28)
[2017-12-25] MEDS ORDERED: CEFT1INJ5 IV (08:28)
[2017-12-25] MEDS ORDERED: SOLU250I IV PUSH (08:28)
[2017-12-25] MEDS ORDERED: EPIN1INJ21 IV PUSH (08:28)
[2017-12-25] MEDS ORDERED: METR-1 PO (08:29)
--- NOTE | 2017-12-25 08:32 | HHI.FF ---
Infusion Therapy Location of Infusion Therapy: [facility] Infusion Therapy Order Patient Information Appointment Date: Dec 25, 2017 Patient Weight 68 kg Diagnosis: Diagnosis Ischial decub ulcer with myositis and ? osteomyelitis. Coded Allergies: No Known Allergies (Unverified Allergy, Unknown, 12/19/17) Administer Medication Ceftriaxone 2 grams IV q 24 hours Start Treatment: Dec 25, 2017 Stop Treatment: Jan 22, 2018 Additional Information Venous access: PICC Line Additional Instructions [x] Peripheral flush and dressing changes per protocol [x] Implanted port and central pipeline engineer: * Implanted port: 10 ml Normal Saline followed by 5 ml Heparin 100 units/ml Heparin flush after each use and monthly to maintain. [] May leave port accessed during therapy. [] May leave peripheral site accessed for duration of therapy. [x] If patient has SOB or respiratory distress, check oxygen saturation. If less than 90% or clinical signs of respiratory distress, administer oxygen at 2 L/min. via nasal cannula and notify physician. [x] Anaphylaxis/Reaction orders: * Stop infusion. * Keep IV line open with saline flush. * Notify physician. * Monitor vital signs every 15 minutes until symptoms resolve. * Check Oxygen saturation; Oxygen at 2 L/min. via nasal cannula if less than 90% or clinical signs of respiratory distress. * Administer diphenhydramine (Benadryl) 25 mg IV STAT, (unless patient has received as pre-med). May repeat once, if necessary. * Solu-Cortef 250 mg IVP over 30-60 seconds, use 100 mg vials for each dissolution. * Epinephrine (1mg/1 ml) 0.3 mg subcutaneously or IVP now with any signs of respiratory distress. * Check with physician for new additional pre-med orders if patient is re- challenged or re-treated. [x] May remove PICC line when treatment complete, after confirming with Physician. [x] If the patient is admitted to the hospital, the ED, or transferred via [facility] , complete transfer form including medication reconciliation order sheet. Laboratory Tests Weekly Labs: CBC w/diff, Creatinine, CRP, LFT's (Hepatic function test) Additional Information Please draw weekly labs and fax to numbers below. If any abnormal labs call retirement MD and number below. Call with change in clinical condition or problems to: or covering ID Physician Follow up appt: Patient/residential to schedule follow up appt with as planned. Follow up with PCP Follow up with other MDs as planned. Counseling: Counseled about medication side effects Counseled about PICC line care and hand hygiene. Lisa Oliva MD Dec 25, 2017 08:32
[2017-12-25] MEDS: metroNIDAZOLE 500 MG TAB PO SCH ×3 (09:14→23:01)
[2017-12-25] MEDS: cefTRIAXone INJ 2,000 MG in SODIUM CHLORIDE 0.9% INJ 100 ML IV SCH (09:14)
[2017-12-25 09:30] LABS: BASOPHIL % 0.3 % (0.0-2.0); EOSINOPHIL # 0.1 TH/MM3 (0-0.4); EOSINOPHIL % 0.9 % (0.0-4.0); HEMATOCRIT 26.6 % (39.0-51.0); HEMOGLOBIN 8.7 GM/DL (13.0-17.0); LYMPH % 9.2 % (9.0-44.0); LYMPHOCYTE # 1.2 TH/MM3 (1.0-4.8); MEAN CELL VOLUME 94.1 FL (80.0-100.0); MEAN CORPUSCULAR HEMOGLOBIN 30.9 PG (27.0-34.0); MEAN CORPUSCULAR HGB CONC 32.9 % (32.0-36.0); MONO % 4.6 % (0.0-8.0); MONOCYTE # 0.6 TH/MM3 (0-0.9); PLATELET COUNT 194 TH/MM3 (150-450); RED BLOOD COUNT 2.82 MIL/MM3 (4.50-5.90); RED CELL DISTRIBUTION WIDTH 13.5 % (11.6-17.2); WHITE BLOOD COUNT 12.9 TH/MM3 (4.0-11.0)
--- NOTE | 2017-12-25 10:07 | HHI.PR ---
Subjective Remarks Patient says he is feeling all right. Reports pain is controlled. No changes per nursing. Denies any chest pain, shortness of breath, nausea, vomiting. Objective Vital Signs Date Time Temp Pulse Resp B/P (MAP) Pulse Ox O2 Delivery O2 Flow Rate FiO2 12/25/17 08:00 98.9 94 17 160/77 (104) 98 12/25/17 04:00 97.9 87 18 133/60 (84) 99 12/25/17 00:00 98.1 93 20 135/80 (98) 100 12/24/17 20:00 99.2 95 18 134/71 (92) 98 12/24/17 12:00 98.2 86 16 151/80 (103) 96 I/O 12/24/17 12/24/17 12/24/17 12/25/17 12/25/17 12/25/17 06:59 14:59 22:59 06:59 14:59 22:59 Intake Total 50 ml 50 ml 1205 ml 50 ml Output Total 2200 ml 100 ml 1100 ml Balance -2150 ml 50 ml 1105 ml -1050 ml IV Total 50 ml 50 ml 1205 ml 50 ml Output Urine Total 2200 ml 1000 ml Drainage Total 100 ml 100 ml # Bowel Movements 1 1 Result Diagram: 12/25/17 0737 12/23/17 1428 Objective Remarks GENERAL: Patient sitting up in bed. Appears comfortable. Alert SKIN: Warm and dry. HEAD: Normocephalic. EYES: No scleral icterus. No injection or drainage. NECK: Supple, trachea midline. No JVD. CARDIOVASCULAR: Regular rate and rhythm without murmurs, gallops, or rubs. RESPIRATORY: Breath sounds equal bilaterally. No accessory muscle use. GASTROINTESTINAL: Abdomen soft, non-tender, nondistended. Wound VAC in place. Again, no changes on exam. MUSCULOSKELETAL: No cyanosis, or edema. A/P Assessment and Plan // Infected decubitus ulcer //Severe sepsis on admission. With WU Patient with leukocytosis, tachycardia Wound, blood cultures pending Vancomycin/Zosyn Wound care consulted, appreciate assistance Infectious disease consulted, appreciate assistance Plastic surgery consulted, appreciate assistance = Antibiotics. Follow-up plastic surgery consultation. Appreciate assistance. = 12/21. Status post excisional debridement. Continue antibiotics as per ID. Cultures pending. = Continue wound VAC. Nutritional supplements. Antibiotics as per ID. Repeat blood cultures negative so far. Appreciate ID and plastic surgery assistance. Labs pending = 12/24. Discussed again with infectious disease. Continue on antibiotics. Unfortunately wound cultures not obtained. = 12/25. Patient will need PICC line, then hopefully can go to rehab on IV antibiotics. Discussed with ID. //Urinary tract infection Urine culture pending Antibiotics as above = Urine culture with mixed zuleika. //Acute kidney injury BUN/81 creatinine 2.08 May be chronic component, no recent values for comparison IV fluid hydration Monitor renal function = Much improved. Creatinine 1.2. Continue IV fluids. //Hypophosphatemia. 1.6 yesterday. Replace. Repeat a.m. lab pending. //Hypertension/hyperlipidemia Continue home medications FEN Heart healthy diet Electrolytes: Monitor and replete as needed NS at 60 cc/hour Heparin Discharge Planning Patient is paraplegic. = Will need IV abx as per ID =will need wound vac Pending ID clearance. = Will need rehab. Wayne Peoples MD Dec 25, 2017 10:07
[2017-12-25] MEDS ORDERED: LISI2.5T3 PO (10:14)
[2017-12-25] MEDS ORDERED: COLL30T TOPICAL (10:14)
--- NOTE | 2017-12-25 10:20 | HHI.DS ---
Discharge Summary Admission Date Dec 19, 2017 at 16:50 Discharge Date: Dec 25, 2017 Admitting Diagnosis Sepsis/Decubitus Ulcer in Paraplegic (1) WU (acute kidney injury) ICD Code: N17.9 - Acute kidney failure, unspecified (2) Hypophosphatemia ICD Code: E83.39 - Other disorders of phosphorus metabolism (3) Anemia ICD Code: D64.9 - Anemia, unspecified (4) Sepsis affecting skin ICD Code: A41.9 - Sepsis, unspecified organism Status: Acute (5) Decubitus ulcer of buttock, stage 4 ICD Code: L89.304 - Pressure ulcer of unspecified buttock, stage 4 Status: Acute (6) Immobility syndrome (paraplegic) ICD Code: M62.3 - Immobility syndrome (paraplegic) Status: Acute Procedures Debridement by plastic surgery. Please see report. Brief History - From Admission 72-year-old paraplegic with a past medical history significant for hypertension and hyperlipidemia presents to the emergency department for the evaluation of a wound on his buttock. The patient reports that when he transfers from the bed to his chair he will occasionally fall on the floor and have to scoot across the floor on his buttock. He reports that he initially had a small wound in January 2017 that by July 2017 had progressed to a stage III decubitus ulcer. In October 2017 the patient was evaluated at the [facility] in [place] where he was told that his ulcer was healing and that it was now a stage II. The patient reports that he fell out of bed 2 times in the last week and has irritated the wound. He states there is foul-smelling drainage coming from the area. He denies any fevers/chills. No chest pain or shortness of breath. No abdominal pain. No nausea/vomiting/diarrhea. No lateralizing signs/symptoms. CBC/BMP: 12/25/17 0737 12/23/17 1428 Significant Findings Laboratory Tests Test 12/23/17 14:28 12/23/17 19:13 12/24/17 09:37 12/25/17 07:37 White Blood Count 16.6 TH/MM3 (4.0-11.0) 12.9 TH/MM3 (4.0-11.0) Red Blood Count 3.24 MIL/MM3 (4.50-5.90) 2.82 MIL/MM3 (4.50-5.90) Hemoglobin 9.8 GM/DL (13.0-17.0) 8.7 GM/DL (13.0-17.0) Hematocrit 30.9 % (39.0-51.0) 26.6 % (39.0-51.0) Mean Corpuscular Hemoglobin Concent 31.8 % (32.0-36.0) Neutrophils (%) (Auto) 87.8 % (16.0-70.0) 85.0 % (16.0-70.0) Lymphocytes (%) (Auto) 7.2 % (9.0-44.0) Neutrophils # (Auto) 14.6 TH/MM3 (1.8-7.7) 11.0 TH/MM3 (1.8-7.7) Neutrophils % (Manual) 87 % (16-70) Lymphocytes % 4 % (9-44) Neutrophils # (Manual) 15.1 TH/MM3 (1.8-7.7) Metamyelocytes 2 % (0-1) Blood Urea Nitrogen 19 MG/DL (7-18) Random Glucose 225 MG/DL (74-106) Albumin 1.7 GM/DL (3.4-5.0) Calcium Level 7.9 MG/DL (8.5-10.1) Phosphorus Level 1.6 MG/DL (2.5-4.9) Chloride Level 108 MEQ/L (98-107) Estimat Glomerular Filtration Rate 76 ML/MIN (>89) Vancomycin Level Trough 37.5 MCG/ML (5.0-10.0) Imaging Last Impressions Chest X-Ray 12/19/17 1315 Signed Impressions: CONCLUSION: No acute cardiopulmonary process. Hospital Course Patient presented with sepsis, leukocytosis up to 28, acute kidney injury with creatinine 2.1, decubitus ulcer. Patient was started on IV fluids, broad- spectrum antibiotics with improvement. Plastic surgery was consulted and performed debridement, however no intraoperative cultures were obtained. Blood cultures on admission with anaerobic gram-positive cocci. Infectious disease was consulted and has recommended antibiotics to complete a one-month course for treatment. Acidosis improved, acute kidney injury resolved with treatment. Patient was placed on wound VAC by plastic surgery and will need to continue with wound care, monitoring. PICC line and antibiotics as per infectious disease. Patient is noted to have anemia which is suspected to be chronic. No reports of bleeding. This can be followed at receiving facility. For problem based summary from most recent progress note, please see below. // Infected decubitus ulcer //Severe sepsis on admission. With WU Patient with leukocytosis, tachycardia Wound, blood cultures pending Vancomycin/Zosyn Wound care consulted, appreciate assistance Infectious disease consulted, appreciate assistance Plastic surgery consulted, appreciate assistance = Antibiotics. Follow-up plastic surgery consultation. Appreciate assistance. = 12/21. Status post excisional debridement. Continue antibiotics as per ID. Cultures pending. = Continue wound VAC. Nutritional supplements. Antibiotics as per ID. Repeat blood cultures negative so far. Appreciate ID and plastic surgery assistance. Labs pending = 12/24. Discussed again with infectious disease. Continue on antibiotics. Unfortunately wound cultures not obtained. = 12/25. Patient will need PICC line, then hopefully can go to rehab on IV antibiotics. Discussed with ID. //Urinary tract infection Urine culture pending Antibiotics as above = Urine culture with mixed zuleika. //Acute kidney injury BUN/81 creatinine 2.08 May be chronic component, no recent values for comparison IV fluid hydration Monitor renal function = Much improved. Creatinine 1.2. Continue IV fluids. //Hypophosphatemia. 1.6 yesterday. Replace. Repeat a.m. lab pending. //Hypertension/hyperlipidemia Continue home medications FEN Heart healthy diet Electrolytes: Monitor and replete as needed NS at 60 cc/hour Heparin Discharge Planning Patient is paraplegic. = Will need IV abx as per ID =will need wound vac Pending ID clearance. = Will need rehab. Pt Condition on Discharge: Good Discharge Disposition: Discharge to SNF Discharge Time: > 30 minutes Discharge Instructions DIET: Follow Instructions for: As Tolerated, No Restrictions Activities you can perform: Regular-No Restrictions Follow up Referrals: Wound Care [facility] - 2-3 Days New Medications: Ceftriaxone Inj (Ceftriaxone Inj) 1 Gram Inj 2 GM IV DAILY for Infection for 30 Days, BAG Epinephrine Inj (Epinephrine Inj) 1 Mg/Ml (1 Ml) Inj 0.3 MG IV PUSH ONCE PRN for ALLERGIC REACTION, #1 VIAL Epinephrine Inj (Epinephrine Inj) 1 Mg/Ml (1 Ml) Inj 0.3 MG SQ ONCE PRN for ALLERGIC REACTION, #1 VIAL Give with any signs of respiratory distress. Hydrocortisone Inj (Solu-Cortef Inj) 250 Mg/2 Ml Inj 250 MG IV PUSH ONCE PRN for ALLERGIC REACTION, #1 VIAL 0 Refills Give over 30-60 seconds. Lisinopril (Lisinopril) 2.5 Mg Tab 2.5 MG PO DAILY, #30 TAB 0 Refills Metronidazole (Flagyl) 500 Mg Tab 500 MG PO TID for Infection for 28 Days, TAB 0 Refills Collagenase (Santyl) 250 Unit/Gram Oin 1 APPLIC TOPICAL DAILY for debridement for 7 Days, TUBE Continued Medications: Amlodipine (Amlodipine) 5 Mg Tab 5 MG PO DAILY for Blood Pressure Management, #30 TAB 0 Refills Aspirin (Aspirin) 325 Mg Tab 325 MG PO DAILY, #30 TAB 0 Refills Clonidine (Clonidine) 0.1 Mg Tab 0.1 MG PO BID for Blood Pressure Management, #60 TAB 0 Refills Metoprolol Tartrate (Metoprolol Tartrate) 25 Mg Tab 25 MG PO BID, #60 TAB 0 Refills Simvastatin (Simvastatin) 80 Mg Tab 80 MG PO DAILY for Cholesterol Management, #30 TAB 0 Refills Discontinued Medications: Hydrochlorothiazide (Hydrochlorothiazide) 25 Mg Tab 25 MG PO DAILY, #30 TAB 0 Refills Lisinopril (Lisinopril) 20 Mg Tab 20 MG PO DAILY, #30 TAB 0 Refills Losartan (Losartan) 50 Mg Tab 50 MG PO DAILY for Blood Pressure Management, #30 TAB 0 Refills Wayne Peoples MD Dec 25, 2017 10:20
[2017-12-25 10:33] LABS: ALBUMIN 1.6 GM/DL (3.4-5.0); CREATININE 0.99 MG/DL (0.60-1.30); MAGNESIUM 1.7 MG/DL (1.5-2.5); PHOSPHORUS 2.3 MG/DL (2.5-4.9)
--- NOTE | 2017-12-25 10:56 | PD.WCN.NOT ---
Wound Consult Description: Left Ischial Communicated with: Prabha bowie Recommendation: Cleanse left lateral lower extremity with wound cleanser and gauze Q5D and PRN for saturation or dislodgement. Apply Maxorb II over wound beds and cover with gauze. Secure primary dressing with rolled gauze and ROSELYN wrap. Date dressing. Right ischial tuberosity DAILY: Cleanse wound with adherent necrotic tissue with NS and gauze. Apply nickel thick Santyl to NS moistened gauze and place in/on wound bed. Apply Cavilon skin barrier film to periwound and allow to dry. Secure with bordered gauze and date. Additional Information: Flexo Operator spoke with Prabha bowie patient to have wound vac removed and moist to dry dressing applied upon discharge to senior living facility. Neg Pressure Wound Therapy Wound Location Wound Location: Left Ischial Wound Description Length: 14.5cm Width: 5.8cm Depth: 4.2cm Wound bed appearance: 50% red non granular muscle 20% beefy red granular tissue 20% Fascia 10% bone Settings Suction: 125 mmHg, Continuous Intensity: Low Other Information: Bridged, Windowpaned, Mushroomed Foam type: Black, White Number of pieces: 2 (1 white 1 black) Quinn Coyle [facility] Dec 25, 2017 10:56
[2017-12-25 11:30] LABS: BANDS 5 % (0-6); BLASTS 1 % (0-0); LYMPHOCYTES 12 % (9-44); METAMYELOCYTES 1 % (0-1); MONOCYTES 7 % (0-8); NEUTROPHIL # MANUAL DIFF 10.2 TH/MM3 (1.8-7.7); POLYS (SEG NEUTROPHILS) 73 % (16-70)
[2017-12-25] MEDS: SODIUM CHLOR 0.45% 1000 ML INJ 1,000 ML IV SCH (12:24)
[2017-12-25] MEDS ORDERED: SODIUM CHLORIDE 0.9% FLUSH 10 ML FLUSH IV FLUSH PRN (16:00)
[2017-12-25] MEDS ORDERED: LISI-519 PO (16:56)
[2017-12-25] MEDS ORDERED: HYDR12.56 PO (16:56)
[2017-12-25] MEDS ORDERED: ENALAPRILAT 1.25 MG/ML VIAL IV PUSH PRN (17:00)
[2017-12-25] MEDS ORDERED: PHARMACY ORDERED LAB ONE (17:45)
[2017-12-25] MEDS ORDERED: amLODIPine BESYLATE 5 MG TAB PO ONE (18:00)
[2017-12-25] MEDS ORDERED: ASPIRIN EC 81 MG TABEC PO ONE (18:00)
[2017-12-25] MEDS ORDERED: LISINOPRIL 5 MG TAB PO ONE (18:00)
[2017-12-25] MEDS ORDERED: HYDROCHLOROTHIAZIDE 12.5 MG CAP PO ONE (18:00)
--- NOTE | 2017-12-25 22:36 | HHI.PR ---
Addendum to Inpatient Note Addendum Reason: Additional Documentation Additional Information Dw WBC count improved Empiric regimen as no cultures to guide therapy. Infusion orders in chart. Will sign off please call back if any change in clinical condition or questions. Lisa Oliva MD Dec 25, 2017 22:36
[2017-12-26] VITALS: BP 142/63; PULSE 84; RESP 20; TEMP 98.6; O2SAT 98
[2017-12-26 04:00] VITALS: BP 153/72; PULSE 89; RESP 20; TEMP 98.4; O2SAT 96
[2017-12-26 04:03] VITALS: PULSE 80
[2017-12-26] MEDS: metroNIDAZOLE 500 MG TAB PO SCH ×2 (04:45→13:32)
[2017-12-26] MEDS: HEPARIN SODIUM - SQ 10,000 UNITS/ML VIAL SQ SCH ×2 (04:46→13:32)
[2017-12-26 08:00] VITALS: BP 155/73; PULSE 90; RESP 17; TEMP 97.9; O2SAT 99
[2017-12-26] MEDS: SODIUM CHLORIDE 0.9% FLUSH 10 ML FLUSH IV FLUSH SCH (09:00)
[2017-12-26] MEDS ORDERED: SODIUM CHLORIDE 0.9% FLUSH 10 ML FLUSH IV FLUSH SCH (09:00)
[2017-12-26] MEDS ORDERED: ASPIRIN EC 81 MG TABEC PO SCH (09:00)
[2017-12-26] MEDS ORDERED: LISINOPRIL 5 MG TAB PO SCH (09:00)
[2017-12-26] MEDS ORDERED: amLODIPine BESYLATE 5 MG TAB PO SCH (09:00)
[2017-12-26] MEDS ORDERED: HYDROCHLOROTHIAZIDE 12.5 MG CAP PO SCH (09:00)
[2017-12-26] MEDS: cloNIDine HCL 0.1 MG TAB PO SCH (09:22)
[2017-12-26] MEDS: DOCUSATE SODIUM 50 MG/SENNA 8.6 MG TAB PO SCH (09:23)
[2017-12-26] MEDS: METOPROLOL TARTRATE 25 MG TAB PO SCH (09:23)
[2017-12-26] MEDS: cefTRIAXone INJ 2,000 MG in SODIUM CHLORIDE 0.9% INJ 100 ML IV SCH (09:24)
[2017-12-26] MEDS: COLLAGENASE OINT 30 GM TUBE TOPICAL SCH (09:24)
[2017-12-26 12:00] VITALS: BP 132/60; PULSE 78; RESP 17; TEMP 98; O2SAT 94
[2017-12-26 16:00] VITALS: BP 139/67; PULSE 105; RESP 17; TEMP 97.8; O2SAT 98
== END 2017-12-26 17:40 | DRG 853 ==
LOC: NEPC 13:03 → NEDA 16:50 → N07B 19:39
PROVIDERS: ADMIT Internal Medicine; ATTEND Internal Medicine
PROC: 0QB30ZZ Excision of Left Pelvic Bone, Open Approach (ICD-10-PCS; principal; 2017-12-21 09:19)
PROC: 05HY33Z Insertion of Infusion Device into Upper Vein, Percutaneous Approach (ICD-10-PCS; 2017-12-25)
DX: A41.9 Sepsis, unspecified organism (principal); L89.324 Pressure ulcer of left buttock, stage 4; N17.9 Acute kidney failure, unspecified; E87.2 Acidosis; G82.20 Paraplegia, unspecified; M60.08 Infective myositis, other site; M87.850 Other osteonecrosis, pelvis; N39.0 Urinary tract infection, site not specified; D64.9 Anemia, unspecified; E83.39 Other disorders of phosphorus metabolism; M60.80 Other myositis, unspecified site; R65.20 Severe sepsis without septic shock; B96.89 Other specified bacterial agents as the cause of diseases classified elsewhere; M62.3 Immobility syndrome (paraplegic); I10 Essential (primary) hypertension; E78.5 Hyperlipidemia, unspecified; W06.XXXA Fall from bed, initial encounter; Z79.82 Long term (current) use of aspirin
CPT/HCPCS: 71045; 76937; 80053; 80069; 80202; 81001; 82550; 83605; 83735; 83880; 85007; 85025; 85027; 85610; 85652; 85730; 86140; 87015; 87040; 87070; 87086; 87205; 93005; 96361; 96365; 96367; J0696; J1100; J1580; J1642; J1644; J2175; J2270; J2370; J2405; J2543; J2710; J3010; J3370; J7030; J7050